=== PATIENT | female | born 1975 | race Caucasian/White ===

== ENCOUNTER 2016-08-27 09:01 | Day surgery (SDC) | payer BC ==
[~2016-08-27 09:01] MED LIST: Buffered Lidocaine 1% SYR 3ML* 3 ML/SYR SYRINGE INTRADERM ONE; Dexamethasone IV* 4 MG/ML 1 ML (4 MG) IV SLOW PU ONE; Famotidine IV* 10 MG/ML 2 ML (20 mg) IV ONE
[2016-08-27] MEDS ORDERED: Famotidine IV* 10 MG/ML 2 ML (20 mg) ONE (09:02)
[2016-08-27] MEDS ORDERED: Dexamethasone IV* 4 MG/ML 1 ML (4 MG) ONE (09:02)
[2016-08-27] MEDS ORDERED: Metoprolol Succinate XL TAB* 25 MG PO ONE (10:00)
[2016-08-27] MEDS ORDERED: HYDROmorphone INJ* 1 MG/ML CARPUJECT SYRINGE ONE ×4 (10:30→14:27)
[2016-08-27] MEDS ORDERED: fentaNYL* 50 MCG/ML 5 ML VIAL (250 MCG VIAL) ONE (10:31)
[2016-08-27] MEDS ORDERED: Midazolam* 1 MG/ML 5 ML VIAL (5 MG) ONE (10:31)
[2016-08-27] MEDS ORDERED: Lidocain 1% EPI 1:100,000 * 30 ML MDV ONE (10:53)
[2016-08-27] MEDS ORDERED: Succinylcholine* 20 MG/ML 10 ML VIAL ONE (12:37)
[2016-08-27] MEDS ORDERED: Lidocaine 2% PF * 5 ML VIAL ONE (12:37)
[2016-08-27] MEDS ORDERED: Propofol* 10 MG/ML 20 ML BTL IV PUSH ONE (12:37)
[2016-08-27] MEDS ORDERED: Ondansetron INJ* 2 MG/ML VIAL ONE (12:37)
[2016-08-27] MEDS ORDERED: fentaNYL* 50 MCG/ML 2 ML VIAL (100 MCG VIAL) ONE ×3 (12:39→14:27)
[2016-08-27] MEDS ORDERED: fentaNYL* 50 MCG/ML 2 ML VIAL (100 MCG VIAL) IV PRN (14:52)
[2016-08-27] MEDS ORDERED: PROCHLORPERAZINE INJ 5 MG/ML 2 ML VIAL IV PRN (14:52)
[2016-08-27] MEDS ORDERED: Scopolamine 1.5 mg* PATCH TRANSDERM PRN (14:52)
[2016-08-27] MEDS ORDERED: HYDROmorphone INJ* 1 MG/ML CARPUJECT SYRINGE IV PRN (14:52)
[2016-08-27] MEDS ORDERED: DiMENhydriNATE IV* 50 MG/ML VIAL IV PUSH PRN (14:52)
[2016-08-27] MEDS ORDERED: Ondansetron INJ* 2 MG/ML VIAL IV PRN (14:52)
[2016-08-27] MEDS ORDERED: Scopolamine 1.5 mg* PATCH ONE (15:38)
[2016-08-27] MEDS ORDERED: DiMENhydriNATE IV* 50 MG/ML VIAL ONE (15:38)
[2016-08-27] MEDS ORDERED: Acetaminophen ADULT LIQ* 650 MG/20.3 ML UDC ONE (16:02)
[2016-08-27 16:09] VITALS: BP 138/79
--- NOTE | 2016-08-28 04:29 | OP ---
OPERATIVE REPORT: DATE OF OPERATION: 08/27/16 DATE OF : 71 SURGEON: Tuan Mooney MD FORM BUILDER HELPER: Jarvis Hylton MD ANESTHESIA: General. PRE-OP DIAGNOSIS: Neoplasm of uncertain behavior, left lobe of thyroid. POST-OP DIAGNOSIS: Neoplasm of uncertain behavior, left lobe of thyroid. OPERATIVE PROCEDURE: Left thyroid lobectomy. ESTIMATED BLOOD LOSS: Less than 10 cc. SPECIMEN: Left thyroid lobe to pathology for frozen section. FINDINGS: There was a discrete nodule in the superior pole of the left lobe of the thyroid. Fine needle aspiration had been suspicious for papillary carcinoma , but touch prep and subsequent frozen section done intraoperatively failed to reveal compelling evidence for malignancy. DESCRIPTION OF PROCEDURE: This is a 40-year-old woman who had a stroke a few months ago and during a workup was noted to have a thyroid nodule. Subsequent fine needle aspiration was suspicious for papillary carcinoma. Left thyroid lobectomy was recommended with intraoperative frozen section. On 08/27/16, the patient was brought to the operating room. General anesthesia was induced and a NIM's endotracheal tube was placed. The placement was confirmed visually. The NIM's monitor was then connected and found to be in good working order. The intended incision line was marked and infiltrated with 7 cc of 1% lidocaine with epinephrine. The patient was then prepped with Betadine and draped sterilely. A time-out was performed. A 15 blade was used to make an incision through the skin and dermis. Deeper subcutaneous fat was divided down to the level of the platysma using a Bovie cautery. The platysma was then divided with a Bovie and subplatysmal flaps were raised superiorly and inferiorly. Strap muscles were then divided vertically along the median raphe. The strap muscles were reflected off of the left lobe. The superior pole region was examined first. The superior vascular pedicle was identified, ligated with Hemoclips, and then divided with the LigaSure device. Attention was then turned inferiorly. The tracheoesophageal groove was explored. The recurrent laryngeal nerve was identified. At this point, the anterior wall of the trachea was skeletonized just above and below the isthmus. The isthmus was then divided with the LigaSure device. The lateral dissection of the thyroid was then undertaken from inferior to superior using a tight capsular dissection with branches of the inferior vascular pedicle being either ligated with Hemoclips or the bipolar cautery. The recurrent laryngeal nerve was used as a landmark in dissection. It was followed to its insertion under the cricothyroid muscle. It was protected and preserved without trauma. Two candidate parathyroids were seen and preserved. The gland was then reflected off of Suarez's ligament. The gland was then taken to pathology. The wound was covered with saline-moistened gauze. Intraoperative evaluation was performed with both a touch prep and a frozen section. No convincing evidence of malignancy was seen. 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 Decision was made to stop the procedure here in favor of evaluation of the permanent sections. After frozen section evaluation, the wound was then inspected. It was copiously irrigated. Multiple Valsalva's were performed. There was no evidence of active bleeding. A small piece of Surgicel was then placed in the region of Suarez's ligament and the wound was closed in layers. The strap muscles were closed with 3-0 Vicryl. The platysma was also closed with 3-0 Vicryl. A 4-0 nylon was then used to close the skin in a running subcuticular fashion. Steri-Strips were then placed along with Mastisol. The patient was then extubated without difficulty and delivered to the PACU in a stable condition. The left recurrent laryngeal nerve was intact and stimulated at the end of surgery. [id number]/[facility] #: [id number] [facility] PS[facility]IATR[facility] CENTERJocelyn
[2016-08-30] MEDS ORDERED: Scopolamine PATCH Remove* 1 NOTE MISC PATCH OFF ONE (14:53)
== END 2016-08-27 16:50 | disposition home or self-care (01) ==
LOC: OR 09:01
PROVIDERS: ATTEND Otolaryngology
DX: D34 Benign neoplasm of thyroid gland (principal); I10 Essential (primary) hypertension; F17.210 Nicotine dependence, cigarettes, uncomplicated; N03.9 Chronic nephritic syndrome with unspecified morphologic changes; R00.2 Palpitations
CPT/HCPCS: 88307; 88331; A9270-GY; J0330; J1100; J1170; J1240; J2250; J2405; J2704; J3010

== ENCOUNTER 2016-11-01 21:54 | Emergency (ER) | payer BC ==
[2016-11-02 00:32] LABS: Hematocrit 43 % (35-47); Hemoglobin 14.4 g/dl (12.0-16.0); Mean Corpuscular HGB Conc 33 g/dl (31-36); Mean Corpuscular Hemoglobin 30 pg (27-31); Mean Corpuscular Volume 90 fL (80-97); Mean Platelet Volume 8 um3 (7.4-10.4); Red Cell Distribution Width 13 % (10.5-15); White Blood Count 12.3 10^3/ul (3.5-10.8)
[2016-11-02 00:49] LABS: Albumin 3.9 g/dL (3.2-5.2); BUN/Creatinine Ratio 14.4 (8-20); Calcium 8.9 mg/dL (8.6-10.3); EGFR African American 87.9 (>60); EGFR Non-African American 68.3 (>60); Globulin 2.7 g/dL (2-4); Magnesium 1.7 mg/dL (1.9-2.7); Potassium 3.4 mmol/L (3.5-5.0); Total Bilirubin 0.3 mg/dL (0.2-1.0); Total Protein 6.6 g/dL (6.4-8.9)
--- NOTE | 2016-11-02 01:06 | ED ---
Steven Sena Salem, scribed for Jose Juan Jones MD on 11/01/16 at 2241 . HPI Chest Pain - HPI Summary HPI Summary: Patient is a 41 y/o female who presents to the ED with dizziness since 2129 tonight. She reports she experienced discomfort in her chest that radiated down her arm. Pt states that sx went away and returned after a few minutes so she came in. However, sx are currently resolved. She describes the dizziness as blurry vision. Pt states that she had similar but worse sx in April 2017 when she had a TIA. She states that at that time she also had facial droop and left-sided weakness, which she currently denies. Pt also reports she has been feeling off the last few days. She states that her PCP recently changed her medication and added a new one as she was Vitamin D deficient. - History of Current Complaint Chief Complaint: EDChestPainROMI Time Seen by Provider: 11/01/16 22:37 Hx Obtained From: Patient Onset/Duration: Started Hours Ago, Atraumatic, Resolved Timing: Intermittent Initial Severity: Moderate Current Severity: Moderate Pain Intensity: 3 Pain Scale Used: 0-10 Numeric Chest Pain Location: Diffuse Chest Pain Radiates: Yes Chest Pain Radiates To:: Arm Character: Other: - Discomfort. Aggravating Factor(s): Nothing Alleviating Factor(s): Nothing Associated Signs and Symptoms: Positive: Chest Pain, Dizziness - Additional Pertinent History Primary Care Physician: ORLIN - Allergy/Home Medications Allergies/Adverse Reactions: Allergies Allergy/AdvReac Type Severity Reaction Status Date / Time Hydrocodone [From Vicodin] Allergy Vomiting Verified 08/27/16 09:12 NSAIDs Allergy KIDNEY Verified 08/27/16 09:12 DAMAGE Oxycodone [From Percocet] AdvReac Severe Vomiting Verified 08/27/16 09:12 PMH/Surg Hx/FS Hx/Imm Hx Endocrine/Hematology History: Reports: Hx Thyroid Disease - having surgery for cancer Denies: Hx Anticoagulant Therapy, Hx Diabetes, Hx Anemia Cardiovascular History: Reports: Hx Hypertension - DUE TO KIDNEY DISEASE; pt denies, Other Cardiovascular Problems/Disorders - LISINOPRIL FOR KIDNEYS , METOPROLOL FOR TACHYCARDIA Denies: Hx Pacemaker/ICD Respiratory History: Denies: Hx Asthma GI History: Reports: Hx Gastroesophageal Reflux Disease Denies: Hx Jaundice History: Reports: Hx Renal Disease - sclerosis of kidney, Other Problems/ Disorders - Kidney disease - sclerosis of kidneys, glomerular nephritis Musculoskeletal History: Reports: Hx Back Problems - Multiple surgeries Sensory History: Denies: Hx Contacts or Glasses, Hx Hearing Aid Opthamlomology History: Denies: Hx Contacts or Glasses Psychiatric History: Denies: Hx Panic Disorder - Cancer History Hx Chemotherapy: No - Surgical History Surgery Procedure, Year, and Place: lumbar L4/L5 discectomy x2, uterine ablation , tubal ligation, appendix, tonsillectomy, jaw fx repair, gallbladder removal, partial HYSTERECTOMY Hx Anesthesia Reactions: No - Immunization History Date of Tetanus Vaccine: UNK Date of Influenza Vaccine: 03/04/16 Infectious Disease History: Denies: Traveled Outside the [place] in Last 30 Days - Family History Known Family History: Positive: Cardiac Disease - CAD, CABG, Diabetes, Blood Disorder - DVT - Social History Alcohol Use: Occasionally Hx Substance Use: No Substance Use Type: Reports: None Hx Tobacco Use: Yes Smoking Status (MU): Former Smoker Type: Cigarettes Amount Used/How Often: 07/2016 Length of Time of Smoking/Using Tobacco: 10 Have You Smoked in the Last Year: Yes Review of Systems Negative: Fever Positive: Chest Pain - that radiates to arm. Neurological: Other - Dizziness. All Other Systems Reviewed And Are Negative: Yes Physical Exam Triage Information Reviewed: Yes Vital Signs On Initial Exam: Initial Vitals Temp Pulse Resp BP Pulse Ox 97 F 79 18 142/98 100 11/01/16 22:07 11/01/16 22:07 11/01/16 22:07 11/01/16 22:07 11/01/16 22:07 Vital Signs Reviewed: Yes Appearance: Positive: Well-Appearing, No Pain Distress Skin: Positive: Warm Eyes: Positive: MAHIN ENT: Positive: Hearing grossly normal Neck: Positive: Supple Respiratory/Lung Sounds: Positive: Clear to Auscultation, Breath Sounds Present Cardiovascular: Positive: RRR Abdomen Description: Positive: Nontender, Soft Bowel Sounds: Positive: Present Musculoskeletal: Positive: Strength/ROM Intact Neurological: Positive: Alert, Oriented to Person Place, Time Psychiatric: Positive: Affect/Mood Appropriate Diagnostics - Vital Signs Vital Signs Temp Pulse Resp BP Pulse Ox 11/01/16 22:07 97 F 79 18 142/98 100 - Laboratory Lab Results: Lab Results 11/02/16 11/02/16 11/02/16 Range/Units 00:15 00:15 00:15 WBC 12.3 H (3.5-10.8) 10^3/ul RBC 4.80 (4.0-5.4) 10^6/ul Hgb 14.4 (12.0-16.0) g/dl Hct 43 (35-47) % MCV 90 (80-97) fL MCH 30 (27-31) pg MCHC 33 (31-36) g/dl RDW 13 (10.5-15) % Plt Count 269 (150-450) 10^3/ul MPV 8 (7.4-10.4) um3 Neut % (Auto) 66.7 (38-83) % Lymph % (Auto) 25.4 (25-47) % Bent % (Auto) 4.2 (1-9) % Eos % (Auto) 2.4 (0-6) % Baso % (Auto) 1.3 (0-2) % Absolute Neuts (auto) 8.2 H (1.5-7.7) 10^3/ul Absolute Lymphs (auto) 3.1 (1.0-4.8) 10^3/ul Absolute Monos (auto) 0.5 (0-0.8) 10^3/ul Absolute Eos (auto) 0.3 (0-0.6) 10^3/ul Absolute Basos (auto) 0.2 (0-0.2) 10^3/ul Absolute Nucleated RBC 0.01 10^3/ul Nucleated RBC % 0.1 INR (Anticoag Therapy) 0.95 (0.89-1.11) Sodium 136 (133-145) mmol/L Potassium 3.4 L (3.5-5.0) mmol/L Chloride 101 (101-111) mmol/L Carbon Dioxide 28 (22-32) mmol/L Anion Gap 7 (2-11) mmol/L BUN 13 (6-24) mg/dL Creatinine 0.90 (0.51-0.95) mg/dL Est GFR ( Amer) 87.9 (>60) Est GFR (Non-Af Amer) 68.3 (>60) BUN/Creatinine Ratio 14.4 (8-20) Glucose 109 H (70-100) mg/dL Lactic Acid (0.5-2.0) mmol/L Calcium 8.9 (8.6-10.3) mg/dL Magnesium 1.7 L (1.9-2.7) mg/dL Total Bilirubin 0.30 (0.2-1.0) mg/dL AST 12 L (13-39) U/L ALT 17 (7-52) U/L Alkaline Phosphatase 78 (34-104) U/L Troponin I 0.00 (<0.04) ng/mL Total Protein 6.6 (6.4-8.9) g/dL Albumin 3.9 (3.2-5.2) g/dL Globulin 2.7 (2-4) g/dL Albumin/Globulin Ratio 1.4 (1-3) / Range/Units 00:15 WBC (3.5-10.8) 10^3/ul RBC (4.0-5.4) 10^6/ul Hgb (12.0-16.0) g/dl Hct (35-47) % MCV (80-97) fL MCH (27-31) pg MCHC (31-36) g/dl RDW (10.5-15) % Plt Count (150-450) 10^3/ul MPV (7.4-10.4) um3 Neut % (Auto) (38-83) % Lymph % (Auto) (25-47) % Bent % (Auto) (1-9) % Eos % (Auto) (0-6) % Baso % (Auto) (0-2) % Absolute Neuts (auto) (1.5-7.7) 10^3/ul Absolute Lymphs (auto) (1.0-4.8) 10^3/ul Absolute Monos (auto) (0-0.8) 10^3/ul Absolute Eos (auto) (0-0.6) 10^3/ul Absolute Basos (auto) (0-0.2) 10^3/ul Absolute Nucleated RBC 10^3/ul Nucleated RBC % INR (Anticoag Therapy) (0.89-1.11) Sodium (133-145) mmol/L Potassium (3.5-5.0) mmol/L Chloride (101-111) mmol/L Carbon Dioxide (22-32) mmol/L Anion Gap (2-11) mmol/L BUN (6-24) mg/dL Creatinine (0.51-0.95) mg/dL Est GFR ( Amer) (>60) Est GFR (Non-Af Amer) (>60) BUN/Creatinine Ratio (8-20) Glucose (70-100) mg/dL Lactic Acid 1.0 (0.5-2.0) mmol/L Calcium (8.6-10.3) mg/dL Magnesium (1.9-2.7) mg/dL Total Bilirubin (0.2-1.0) mg/dL AST (13-39) U/L ALT (7-52) U/L Alkaline Phosphatase (34-104) U/L Troponin I (<0.04) ng/mL Total Protein (6.4-8.9) g/dL Albumin (3.2-5.2) g/dL Globulin (2-4) g/dL Albumin/Globulin Ratio (1-3) Result Diagrams: 11/02/16 00:15 11/02/16 00:15 Lab Statement: Any lab studies that have been ordered have been reviewed, and results considered in the medical decision making process. - Radiology CXR Radiology Interpretation Completed By: ED Physician - Negative. - EKG 9854 EKG Interpretation: NSR @ 76 bpm. Re-Evaluation - Re-Evaluation First Eval Change: Improved Chest Pain Course/Dx - Diagnoses Provider Diagnoses: Dizziness, Chest pain Discharge - Discharge Plan Condition: Stable Disposition: HOME Patient Education Materials: Chest Pain (ED), Dizziness (ED) Referrals: Bruno Cabrera MD [Primary Care Provider] - Additional Instructions: Follow up with PCP. The documentation as recorded by the Steven agosto Salem accurately reflects the service I personally performed and the decisions made by , Jose Juan Jones MD.
[2016-11-02 01:16] VITALS: BP 122/76
--- NOTE | 2016-11-02 07:29 | RAD ---
INDICATION: Chest pain. COMPARISON: Comparison is made with a prior study from June 19, 2016. TECHNIQUE: Dual-energy PA and lateral views of the chest were obtained. FINDINGS: The heart is within normal limits in size. Mediastinal and hilar contours appear within normal limits. The lungs are clear. No pleural effusion is present. IMPRESSION: NO EVIDENCE FOR ACTIVE CARDIOPULMONARY DISEASE.
== END 2016-11-02 01:16 | disposition home or self-care (01) ==
LOC: ED 21:54
DX: R07.9 Chest pain, unspecified (principal); R42 Dizziness and giddiness; Z87.891 Personal history of nicotine dependence
CPT/HCPCS: 36415; 71020; 80053; 83605; 83735; 84484; 85025; 85610; 93005; 99282

== ENCOUNTER 2017-05-03 05:50 | Inpatient (IN) | payer BC ==
[2017-05-03 06:30] LABS: Hematocrit 42 % (35-47); Hemoglobin 13.9 g/dl (12.0-16.0); Mean Corpuscular HGB Conc 33 g/dl (31-36); Mean Corpuscular Hemoglobin 30 pg (27-31); Mean Corpuscular Volume 92 fL (80-97); Mean Platelet Volume 8 um3 (7.4-10.4); Red Cell Distribution Width 13 % (10.5-15); White Blood Count 8.3 10^3/ul (3.5-10.8)
[2017-05-03] MEDS ORDERED: NS 0.9% 1000 ML* 1,000 ML IV SCH (06:30)
[2017-05-03] MEDS ORDERED: Nitroglycerin TAB 0.4 MG* 0.4 MG TAB SL ONE (06:40)
[2017-05-03] MEDS ORDERED: Morphine INJ* 4 MG/ML 1 ML CARPUJECT IV ONE (06:43)
[2017-05-03] MEDS ORDERED: Ondansetron INJ* 2 MG/ML VIAL IV ONE (06:43)
[2017-05-03 06:47] LABS: ALT 29 U/L (7-52); AST 19 U/L (13-39); Alkaline Phosphatase 74 U/L (34-104); Anion Gap 9 mmol/L (2-11); BUN/Creatinine Ratio 15.1 (8-20); Blood Urea Nitrogen 11 mg/dL (6-24); C Reactive Protein 11.13 mg/L (< 5.00); CO2 Carbon Dioxide 24 mmol/L (22-32); Calcium 9.1 mg/dL (8.6-10.3); Chloride 104 mmol/L (101-111); Creatine Kinase 36 U/L (10-223); EGFR African American 111.9 (>60); Globulin 2.6 g/dL (2-4); Glucose 104 mg/dL (70-100); Lipase 23 U/L (11.0-82.0); Magnesium 1.7 mg/dL (1.9-2.7); Potassium 3.7 mmol/L (3.5-5.0); Sodium 137 mmol/L (133-145); Total Protein 6.6 g/dL (6.4-8.9)
[2017-05-03] MEDS ORDERED: Magnesium Sulfate 2 GM IV* 2 GM/50 ML BAG IVPB ONE (07:05)
[2017-05-03 07:24] LABS: TSH (Thyroid Stimulating Horm) 4.51 mcIU/mL (0.34-5.60)
--- NOTE | 2017-05-03 07:24 | ED ---
Bhavesh eSna Nikita, scribed for Anival Sandy MD on 05/03/17 at 0639 . HPI Chest Pain - HPI Summary HPI Summary: This patient is a 41 year old F BIBA to ED with a chief complaint of L-sided CP since 429. The pain woke the pt out of her sleep. The CC is described as burning and radiating down the L arm. The patient rates the pain 4-5/10 in severity at its worst. Symptoms aggravated by nothing. Symptoms alleviated by nothing (EMS gave NTG with no relief). Patient reports SOB, palpitations, diaphoresis, near-syncope (yesterday while shopping), and dizziness (like the floor was going to meet my face). Patient denies nausea. Pt reports she felt off all day yesterday. - History of Current Complaint Chief Complaint: EDChestPainROMI Time Seen by Provider: 05/03/17 06:25 Hx Obtained From: Patient Hx Last Menstrual Period: 07/28/12 Onset/Duration: Started Hours Ago, Still Present Timing: Constant, Lasting Hours Initial Severity: Moderate Current Severity: Moderate Pain Intensity: 4 Pain Scale Used: 0-10 Numeric Chest Pain Location: Discrete at: - L-sided CP Chest Pain Radiates: Yes Chest Pain Radiates To:: Arm - L arm Character: Burning Aggravating Factor(s): Nothing Alleviating Factor(s): Nothing Associated Signs and Symptoms: Positive: Other: - Patient reports SOB, palpitations, diaphoresis, near-syncope (yesterday while shopping), and dizziness (like the floor was going to meet my face). Patient denies nausea. - Additional Pertinent History Primary Care Physician: [id number] - Allergy/Home Medications Allergies/Adverse Reactions: Allergies Allergy/AdvReac Type Severity Reaction Status Date / Time Hydrocodone [From Vicodin] Allergy Vomiting Verified 08/27/16 09:12 NSAIDs Allergy KIDNEY Verified 08/27/16 09:12 DAMAGE Oxycodone [From Percocet] AdvReac Severe Vomiting Verified 08/27/16 09:12 PMH/Surg Hx/FS Hx/Imm Hx Endocrine/Hematology History: Reports: Hx Thyroid Disease - having surgery for cancer Denies: Hx Anticoagulant Therapy, Hx Diabetes, Hx Anemia Cardiovascular History: Reports: Hx Hypertension - DUE TO KIDNEY DISEASE; pt denies, Other Cardiovascular Problems/Disorders - LISINOPRIL FOR KIDNEYS , METOPROLOL FOR TACHYCARDIA Denies: Hx Pacemaker/ICD Respiratory History: Denies: Hx Asthma GI History: Reports: Hx Gastroesophageal Reflux Disease Denies: Hx Jaundice History: Reports: Hx Renal Disease - sclerosis of kidney, Other Problems/ Disorders - Kidney disease - sclerosis of kidneys, glomerular nephritis Musculoskeletal History: Reports: Hx Back Problems - Multiple surgeries Sensory History: Denies: Hx Contacts or Glasses, Hx Hearing Aid Opthamlomology History: Denies: Hx Contacts or Glasses Psychiatric History: Denies: Hx Panic Disorder - Cancer History Hx Chemotherapy: No - Surgical History Surgery Procedure, Year, and Place: lumbar L4/L5 discectomy x2, uterine ablation , tubal ligation, appendix, tonsillectomy, jaw fx repair, gallbladder removal, partial HYSTERECTOMY Hx Anesthesia Reactions: No - Immunization History Date of Tetanus Vaccine: UNK Date of Influenza Vaccine: 03/04/16 Infectious Disease History: No Infectious Disease History: Denies: Traveled Outside the [place] in Last 30 Days - Family History Known Family History: Positive: Cardiac Disease - CAD, CABG, Diabetes, Blood Disorder - DVT - Social History Alcohol Use: Occasionally Hx Substance Use: No Substance Use Type: Reports: None Hx Tobacco Use: Yes Smoking Status (MU): Former Smoker Type: Cigarettes Amount Used/How Often: 07/2016 Length of Time of Smoking/Using Tobacco: 10 Have You Smoked in the Last Year: Yes Review of Systems Positive: Skin Diaphoresis Positive: Palpitations, Chest Pain - L-sided Positive: Shortness Of Breath Negative: Nausea Neurological: Other - near-syncope, dizziness All Other Systems Reviewed And Are Negative: Yes Physical Exam Triage Information Reviewed: Yes Vital Signs On Initial Exam: Initial Vitals Temp Pulse Resp BP Pulse Ox 98.1 F 94 16 142/85 96 05/03/17 05:56 05/03/17 05:56 05/03/17 05:56 05/03/17 05:56 05/03/17 05:56 Vital Signs Reviewed: Yes Appearance: Positive: Well-Appearing, No Pain Distress Skin: Positive: Warm, Skin Color Reflects Adequate Perfusion, Dry Head/Face: Positive: Normal Head/Face Inspection Eyes: Positive: EOMI, MAHIN ENT: Positive: Normal ENT inspection Neck: Positive: Supple, Nontender Respiratory/Lung Sounds: Positive: Clear to Auscultation, Breath Sounds Present Cardiovascular: Positive: RRR Abdomen Description: Positive: Nontender, Soft Bowel Sounds: Positive: Present Musculoskeletal: Positive: Normal, Strength/ROM Intact Neurological: Positive: Normal, Sensory/Motor Intact, Alert, Oriented to Person Place, Time Psychiatric: Positive: Anxious Diagnostics - Vital Signs Vital Signs Temp Pulse Resp BP Pulse Ox 05/03/17 06:02 102 96 05/03/17 05:56 98.1 F 94 16 142/85 96 - Laboratory Lab Results: Lab Results 05/03/17 Range/Units 06:10 WBC 8.3 (3.5-10.8) 10^3/ul RBC 4.60 (4.0-5.4) 10^6/ul Hgb 13.9 (12.0-16.0) g/dl Hct 42 (35-47) % MCV 92 (80-97) fL MCH 30 (27-31) pg MCHC 33 (31-36) g/dl RDW 13 (10.5-15) % Plt Count 251 (150-450) 10^3/ul MPV 8 (7.4-10.4) um3 Neut % (Auto) 68.0 (38-83) % Lymph % (Auto) 24.1 L (25-47) % [place] % (Auto) 4.3 (1-9) % Eos % (Auto) 3.0 (0-6) % Baso % (Auto) 0.6 (0-2) % Absolute Neuts (auto) 5.7 (1.5-7.7) 10^3/ul Absolute Lymphs (auto) 2.0 (1.0-4.8) 10^3/ul Absolute Monos (auto) 0.4 (0-0.8) 10^3/ul Absolute Eos (auto) 0.3 (0-0.6) 10^3/ul Absolute Basos (auto) 0 (0-0.2) 10^3/ul Absolute Nucleated RBC 0 10^3/ul Nucleated RBC % 0 Result Diagrams: 05/03/17 06:10 05/03/17 06:10 Lab Statement: Any lab studies that have been ordered have been reviewed, and results considered in the medical decision making process. - Radiology CXR Radiology Interpretation Completed By: ED Physician - NAD - EKG 0620 Cardiac Rate: Tachycardia EKG Rhythm: Sinus Tachycardia - [address] Segment: Normal Ectopy: None Chest Pain Course/Dx - Course Assessment/Plan: This patient is a 41 year old F BIBA to ED with a chief complaint of L-sided CP since 429. The pain woke the pt out of her sleep. The CC is described as burning and radiating down the L arm. The patient rates the pain 4-5/10 in severity at its worst. Symptoms aggravated by nothing. Symptoms alleviated by nothing (EMS gave NTG with no relief). Patient reports SOB, palpitations, diaphoresis, near-syncope (yesterday while shopping), and dizziness (like the floor was going to meet my face). Patient denies nausea. Pt reports she felt off all day yesterday. BP noted and advised to follow up with PCP. Medications reviewed. Allergies noted. EKG reveals sinus tachycardia at 103 bpm, nml ST, and no ectopy. In the ED course, pt was given fluids and NTG. ADMIT HOSPITALIST - Diagnoses Provider Diagnoses: Chest pain Discharge - Discharge Plan Condition: Stable Disposition: ADMITTED TO [facility] Referrals: Bruno Cabrera MD [Primary Care Provider] - The documentation as recorded by the Bhavesh agosto Nikita accurately reflects the service I personally performed and the decisions made by me, Anival Sandy MD.
--- NOTE | 2017-05-03 07:50 | RAD ---
INDICATION: Chest pain. COMPARISON: Comparison is made with a prior chest x-ray study November 01, 2016. TECHNIQUE: A portable view of the chest was obtained. FINDINGS: Cardiac and mediastinal contours appear to be within normal limits. The lungs are clear. No pleural effusion is seen. IMPRESSION: NO EVIDENCE FOR ACUTE DISEASE.
[2017-05-03] MEDS ORDERED: Magnesium Sulfate IV* 3 GM in NS 0.9% 100 ML* 100 ML IVPB ONE (08:16)
[2017-05-03 08:38] LABS: Cholesterol 182 mg/dL; HDL Cholesterol 45.4 mg/dL; LDL Cholesterol 101 mg/dL; Triglycerides 180 mg/dL
[2017-05-03] MEDS ORDERED: NS 0.9% 100 ML* 100 ML ONE (09:33)
[2017-05-03] MEDS: Acetaminophen TAB* 325 MG PO PRN (09:37)
[2017-05-03] MEDS: Cholecalciferol TAB* 1000 UNITS PO SCH (09:37)
[2017-05-03] MEDS: Lisinopril TAB* 10 MG PO SCH (09:37)
[2017-05-03] MEDS: Magnesium Oxide TAB* 400 MG PO SCH (09:38)
[2017-05-03] MEDS: Omeprazole CAP* 20 MG PO SCH (09:38)
[2017-05-03] MEDS ORDERED: Ondansetron INJ* 2 MG/ML VIAL IV PRN (11:04)
--- NOTE | 2017-05-03 12:09 | HP ---
CC: Dr. Cabrera; Dr. Zayas * HISTORY AND PHYSICAL: DATE OF ADMISSION: 05/03/17 PRIMARY CARE PROVIDER: Dr. Cabrera. REMOTE RECRUITER: Dr. Zayas. ATTENDING PHYSICIAN: Dr. Sonia Joseph * (report dictated by Yudy Nova NP). CHIEF COMPLAINT: Chest pain with palpitations. HISTORY OF PRESENT ILLNESS: Ms. Connor is a 41-year-old female with past medical history significant for atypical chest pain, palpitations, hypertension , TIA, who presented to the emergency room today with an episode of high heart rate and chest pain. The patient states she woke up in the middle of the night with sweating profusely. She took her heart rate, which she states was between 130 and 136. She felt that her heart was pounding. The patient states the pain was a burning sensation with radiating down her arm, her chest also hurt, pain was not reproducible on palpation. The patient states that this pain was different than the episode she has had in the past. It has been almost a year since her previous a prior episode. Yesterday, she states she "was not feeling right." She was dizzy when she was in the parking lot at [employer] and almost came to the emergency room then. She summoned EMS to bring her to the emergency room with this morning's episode for further evaluation. In the emergency room, she received nitro and at that point the pain was started to ease up. In the past with these episodes, the pain has eased up in a much more timely fashion. The patient has a history of having atypical chest pain and reestablished herself with Dr. Zayas at some point last year because of this episode. Historically, she has had negative evaluation with some improvement in the episodes with initiation of PPI. It was felt that these episodes were less likely to be cardiovascular and potentially radiculopathy, cervical disk or GI related. Her blood pressure had been quite labile, hence the plan per last cardiology note in December was to start her on Cardizem with hope for improvement of the palpitations, cardiac relaxation, and blood pressure control. In the emergency room, the patient had a negative troponin. She had an EKG that showed sinus tach with rate of 103, no abnormalities. Hospitalists were asked to evaluate this patient for admission. The patient was placed on observation for atypical chest pain. PAST MEDICAL HISTORY: Atypical chest pain, palpitations, hypertension, focal segmental glomerulosclerosis, thyroid nodule, TIA, obstructive sleep apnea, tobacco abuse. PAST SURGICAL HISTORY: Cholecystectomy, appendectomy, tonsillectomy, total artificial hysterectomy. HOME MEDICATIONS: Include: 1. Aspirin 325 mg oral daily. 2. Cardizem 120 mg oral daily. 3. Lisinopril 20 mg oral daily. 4. Toprol 12.5 mg oral daily. 5. Mag oxide 400 mg oral daily. 6. Vitamin D 5000 units oral daily. 7. Torsemide 20 mg oral daily as needed. 8. Protonix 40 mg oral daily. ALLERGIES: NSAIDS, NARCOTICS. FAMILY HISTORY: Father had a history of an NM, when he was 56, he also had diabetes. Mother is alive and well. SOCIAL HISTORY: The patient is a former smoker, she quit almost a year ago. She smoked a pack daily for 20 years. Drinks alcohol occasionally. Denies any drug use. Consumes 3 cups of coffee a day. Sporadic exercise. REVIEW OF SYSTEMS: I performed a 14-point review of systems. All the pertinent positives and negatives are mentioned in the history of present illness. The remaining review of systems are negative. PHYSICAL EXAMINATION GENERAL APPEARANCE: The patient is alert, pleasant, appeared to be in no apparent distress. VITAL SIGNS: Temperature 98.1, heart rate 101, respiratory rate 16, oxygen saturation 97% on room air, blood pressure 136/96. HEENT: Normocephalic/atraumatic. Pupils are equal and reactive to light. Extraocular movements are intact. NECK: Supple. There is no lymphadenopathy noted. RESPIRATORY: There was no accessory muscle use. Lungs were clear to auscultation. Pain was non-reproducible on palpation. CARDIAC: S1, S2 were crisp. There were no murmurs, rubs, or gallops heard. ABDOMEN: Soft, nontender, nondistended. There are bowel sounds x4. EXTREMITIES: There was no lower extremity edema. DP and PT pulses were 2+ and asymmetric. MUSCULOSKELETAL: There is no clubbing or cyanosis noted. The patient exhibited equal strength in all extremities. NEUROLOGIC: Cranial nerves II through XII are intact. The patient moves all extremities. Lower extremities are intact to light touch. PSYCH: The patient is alert and oriented x3. SKIN: There were no rashes or abnormalities seen. DIAGNOSTIC STUDIES/LABORATORY DATA: Sodium 137, potassium 3.7, chloride 104, CO2 24, BUN 11, creatinine 0.73, glucose 104. Lactic acid 1.5, calcium 9.1, magnesium 1.7. Liver function tests within normal limits. CRP 11.1. BNP 10. TSH 4.5. White blood cell count 8.3, hemoglobin 13.9, hematocrit 42, platelet count 251. INR 0.81, PTT 27.9. Chest x-ray, no evidence for acute disease. EKG is sinus tachycardia with rate of 103, no abnormalities. IMPRESSION: This is a 41-year-old female with past medical history significant for palpitations, atypical chest pain, who presents to the emergency room with an episode of palpitations and chest pain. The patient will be placed on observation for repeat troponin and a stress test later today. ASSESSMENT AND PLAN: 1. Chest pain. The patient will be placed in the CDU and will have an additional troponin at 11 a.m. She will also have a fasting lipid profile. Magnesium is low and this will be repleted as well as potassium. If the troponin is negative, the patient will have a nuclear cardiac stress test. Cardizem and Toprol will be held in anticipation of the stress test. Lisinopril will be given this morning as well as Protonix. The patient has already received aspirin. 2. Hypertension. Blood pressure is slightly elevated and lisinopril will be given this morning. Other agents will be held in anticipation of the stress test. 3. Obstructive sleep apnea. Home CPAP if the patient will stay overnight, will continue. 4. DVT prophylaxis. The patient is at moderate risk. She will have subcu heparin. 5. Diet. NPO in anticipation of the stress test. Likely the patient can be discharged home following the stress test. TIME SPENT: Time for this admission was 60 minutes, and 35 minutes was spent with the patient discussing medications, past medical history, and the events leading up to her arrival in the emergency room. Reviewed by YUDY NOVA NP 05/04/2017 1130 [id number]/[facility] #: [id number] ANDRES
[2017-05-03] MEDS ORDERED: PROCHLORPERAZINE INJ 5 MG/ML 2 ML VIAL IV PRN (13:13)
[2017-05-03] MEDS: Heparin VIAL(*) 5000 UNITS/ML VIAL (FIVE THOUSAND) SUBCUT SCH ×2 (13:36→21:50)
[2017-05-03] MEDS: Diltiazem CD CAP* 120 MG PO SCH (20:08)
[2017-05-04 00:07] LABS: Urine Bacteria Absent (Absent); Urine Bilirubin Negative (Negative); Urine Glucose Negative (Negative); Urine Nitrite Negative (Negative)
[2017-05-04] MEDS: Heparin VIAL(*) 5000 UNITS/ML VIAL (FIVE THOUSAND) SUBCUT SCH ×3 (06:20→22:32)
[2017-05-04 06:57] LABS: BUN/Creatinine Ratio 17.1 (8-20); Calcium 8.5 mg/dL (8.6-10.3); EGFR African American 106.8 (>60); EGFR Non-African American 83.1 (>60); Potassium 4.2 mmol/L (3.5-5.0)
[2017-05-04] MEDS: Omeprazole CAP* 20 MG PO SCH (08:51)
[2017-05-04] MEDS: Lisinopril TAB* 10 MG PO SCH (08:51)
[2017-05-04] MEDS: Magnesium Oxide TAB* 400 MG PO SCH (08:51)
[2017-05-04] MEDS: Aspirin TAB* 325 MG PO SCH (08:51)
[2017-05-04] MEDS: Cholecalciferol TAB* 1000 UNITS PO SCH (08:52)
[2017-05-04] MEDS ORDERED: Diltiazem CD CAP* 120 MG PO SCH (09:00)
[2017-05-04] MEDS: Diltiazem CD CAP* 120 MG PO SCH (11:38)
[2017-05-04] MEDS: Metoprolol Succinate XL TAB* 25 MG PO SCH (11:38)
--- NOTE | 2017-05-04 12:47 | PN ---
Subjective Date of Service: 05/04/17 Interval History: Pt seen and examined at bedside. Pt has nausea yesterday and was unable to complete stress test. Today she feels better and completed the stress portion without difficulty. Patient states she was not wearing her CPAP the night this episode happenned. Family History: Unchanged from Admission Social History: Unchanged from Admission Past Medical History: Unchanged from Admission Objective Active Medications: Acetaminophen (Tylenol Tab*) 650 mg PO Q4H PRN Aspirin (Aspirin Tab*) 325 mg PO DAILY CAIT Cholecalciferol (Vitamin D Tab*) 5,000 units PO DAILY CAIT Diltiazem HCl (Cardizem Cd Cap*) 120 mg PO DAILY CAIT Heparin Sodium (Porcine) (Heparin Vial(*)) 5,000 units SUBCUT Q8HR CAIT Lisinopril (Prinivil Tab*) 20 mg PO DAILY CAIT Magnesium Oxide (Magox 400 Tab*) 400 mg PO DAILY CAIT Metoprolol Succinate (Toprol Xl Tab*) 12.5 mg PO DAILY CAIT Omeprazole (Prilosec Cap*) 20 mg PO DAILY@0730 CAIT Ondansetron HCl (Zofran Inj*) 4 mg IV Q6H PRN Prochlorperazine Edisylate (Compazine Inj*) 10 mg IV Q6H PRN Vital Signs Temp Pulse Resp BP Pulse Ox 97.9 F 84 16 145/90 96 05/04/17 08:31 05/04/17 08:31 05/04/17 08:31 05/04/17 08:31 05/04/17 08:31 Oxygen Devices in Use Now: None Appearance: sitting up in bed, NAD Eyes: No Scleral Icterus, PERRLA Ears/Nose/Mouth/Throat: NL Teeth, Lips, Gums, Clear Oropharnyx, Mucous Membranes Moist Neck: NL Appearance and Movements; NL JVP Respiratory: Symmetrical Chest Expansion and Respiratory Effort, Clear to Auscultation Cardiovascular: NL Sounds; No Murmurs; No JVD, RRR Abdominal: NL Sounds; No Tenderness; No Distention Extremities: No Edema Skin: No Rash or Ulcers Neurological: Alert and Oriented x 3, NL Muscle Strength and Tone Lines/Tubes/Other Access: Clean, Dry and Intact Peripheral IV Nutrition: Taking PO's Result Diagrams: 05/03/17 06:10 05/04/17 06:19 Additional Lab and Data: . Assess/Plan/Problems-Billing Pt is a 41 y/o F w/ PMH significant for HTN, atypical chest pain in the past who presented to the ED w/ the c/o of palpitations and chest pain. - Patient Problems (1) Chest pain Comment: Troponin negative, EKG stable. Patient completed 1st part of stress test and preliminary results shows perfusion defect on inferior wall. She will need to stay tonight to have resting portion in the morning. Continue cardizem , Toprol, and ASA. LDL and Cholesterol bordeline. Likely this episode (and tachycardia) from not wearing CPAP at night. (2) GERD (gastroesophageal reflux disease) Comment: Continue Protonix (3) Hypertension Comment: Continue Lisinopril, Cardizem and Toprol. (4) CECILE (obstructive sleep apnea) Comment: Home CPAP. (5) DVT prophylaxis Comment: HSQ (6) Full code status Status and Disposition: OBV for palpitations and chest pain. Will need 2 day stress test. Discharge home tomorrow AM after 2nd part of stress test.
[2017-05-04] MEDS: Acetaminophen TAB* 325 MG PO PRN (17:33)
[2017-05-05] MEDS: Heparin VIAL(*) 5000 UNITS/ML VIAL (FIVE THOUSAND) SUBCUT SCH ×3 (06:04→22:18)
--- NOTE | 2017-05-05 08:39 | RAD ---
Edited for charges. INDICATION: Chest pain in a woman with multiple cardiac risk factors. COMPARISON: Chest x-ray dated May 03, 2017 TECHNIQUE: SPECT imaging was performed. Stress images were acquired following the intravenous injection of 25 millicuries of technetium 99m tetrofosmin on May 04, 2016. On May 05, 2016 rest images were acquired following the intravenous administration of 25 millicuries of technetium 99m tetrofosmin. A target heart rate of 160 bpm was obtained which is approximately 90% of the patient's maximum heart rate. The patient was unable to raise her arms for the purpose of CT imaging and therefore attenuation correction images were not obtained. This limits the quality of the study. FINDINGS: On the stress images there is slight relative reduction in uptake along the inferior myocardium relative to the rest images. On the dynamic images there appears to be complete apposition of the endocardium during contraction. No paradoxical wall motion is observed on the dynamic cardiac images. The ejection fraction is calculated to be 64% on the rest images and 65% on the stress images. IMPRESSION: There is a slight relative decrease in uptake at the inferior myocardium on the stress images relative to the rest images. This appearance could simply be the consequence of not being able to obtain attenuation correction images, but inferior wall ischemia cannot BE completely excluded on this imaging alone. ASSESSMENT: Intermediate risk Based on imaging criteria from ACC/AHA 2002 Guideline Update for the Management of Patients With Chronic Stable Angina Table 23. Noninvasive Risk Stratification. MTDD
[2017-05-05] MEDS: Diltiazem CD CAP* 120 MG PO SCH (10:28)
[2017-05-05] MEDS: Aspirin TAB* 325 MG PO SCH (10:28)
[2017-05-05] MEDS: Cholecalciferol TAB* 1000 UNITS PO SCH (10:28)
[2017-05-05] MEDS: Metoprolol Succinate XL TAB* 25 MG PO SCH (10:28)
[2017-05-05] MEDS: Omeprazole CAP* 20 MG PO SCH (10:28)
[2017-05-05] MEDS: Lisinopril TAB* 10 MG PO SCH (10:29)
[2017-05-05] MEDS: Magnesium Oxide TAB* 400 MG PO SCH (10:29)
--- NOTE | 2017-05-05 12:23 | PN ---
Subjective Date of Service: 05/05/17 Interval History: Patient seen and examined at bedside. Pt denies chest discomfort at rest, but reports chest discomfort that radiates to her left shoulder blade with ambulation. Describes this as a "burning sensation". Denies fever, chills, shortness of breath, N/V/D. Pt also reports having shortness of breath on Tuesday when walking to her car after work and this resolved after 20-30 minutes of sitting in her car. Pt also reports almost passing out while grocery shopping on Tuesday, reported feeling "like the floor was coming towards her head ". Pt reports feeling palpitations and like her heart rate is fast when ambulating. Tele: Sinus rhythm, rate 70-80's. Few PVCs noted. Family History: Unchanged from Admission Social History: Unchanged from Admission Past Medical History: Unchanged from Admission Objective Active Medications: Acetaminophen (Tylenol Tab*) 650 mg PO Q4H PRN Reason: PAIN Aspirin (Aspirin Tab*) 325 mg PO DAILY CAIT Cholecalciferol (Vitamin D Tab*) 5,000 units PO DAILY CAIT Diltiazem HCl (Cardizem Cd Cap*) 120 mg PO DAILY CAIT Heparin Sodium (Porcine) (Heparin Vial(*)) 5,000 units SUBCUT Q8HR CAIT Lisinopril (Prinivil Tab*) 20 mg PO DAILY CAIT Magnesium Oxide (Magox 400 Tab*) 400 mg PO DAILY CAIT Metoprolol Succinate (Toprol Xl Tab*) 12.5 mg PO DAILY CAIT Omeprazole (Prilosec Cap*) 20 mg PO DAILY@0730 CAIT Ondansetron HCl (Zofran Inj*) 4 mg IV Q6H PRN Reason: NAUSEA Prochlorperazine Edisylate (Compazine Inj*) 10 mg IV Q6H PRN Reason: NAUSEA/ VOMITING Vital Signs 05/04/17 05/04/17 05/04/17 12:30 15:01 19:17 Temperature 97.6 F 97.8 F 97.9 F Pulse Rate 81 84 82 Respiratory 16 18 16 Rate Blood Pressure 139/86 146/78 120/68 (mmHg) O2 Sat by Pulse 98 97 98 Oximetry 05/04/17 05/05/17 05/05/17 22:41 03:25 08:15 Temperature 97.5 F 97.6 F 98.5 F Pulse Rate 88 74 81 Respiratory 18 16 16 Rate Blood Pressure 135/59 113/58 107/68 (mmHg) O2 Sat by Pulse 95 95 92 Oximetry Oxygen Devices in Use Now: None Appearance: NAD, sitting up in chair Ears/Nose/Mouth/Throat: Mucous Membranes Moist Respiratory: Symmetrical Chest Expansion and Respiratory Effort, Clear to Auscultation Cardiovascular: NL Sounds; No Murmurs; No JVD, RRR Abdominal: NL Sounds; No Tenderness; No Distention Extremities: No Edema Skin: No Rash or Ulcers Neurological: Alert and Oriented x 3, NL Muscle Strength and Tone Lines/Tubes/Other Access: Clean, Dry and Intact Peripheral IV - site benign Nutrition: Taking PO's Result Diagrams: 05/03/17 06:10 05/04/17 06:19 Diagnostic Imaging: -05/05/17 - NM MYOCARDIAL MULTI RESTING; NUCLEAR CARDIAC STRESS TEST FINDINGS: On the stress images there is slight relative reduction in uptake along the inferior myocardium relative to the rest images. On the dynamic images there appears to be complete apposition of the endocardium during contraction. No paradoxical wall motion is observed on the dynamic cardiac images. The ejection fraction is calculated to be 64% on the rest images and 65% on the stress images. IMPRESSION: There is a slight relative decrease in uptake at the inferior myocardium on the stress images relative to the rest images. This appearance could simply be the consequence of not being able to obtain attenuation correction images, but inferior wall ischemia cannot BE completely excluded on this imaging alone. ASSESSMENT: Intermediate risk Based on imaging criteria from ACC/AHA 2002 Guideline Update for the Management of Patients With Chronic Stable Angina Table 23. Noninvasive Risk Stratification. Assess/Plan/Problems-Billing Ms. Connor is a 41 y/o F w/ PMH significant for HTN, atypical chest pain in the past who presented to the ED w/ the c/o of palpitations and chest pain. - Patient Problems (1) Chest pain Code(s): R07.9 - CHEST PAIN, UNSPECIFIED SNOMED Code(s): 32901320 Comment: - Suspect this episode (and tachycardia) may be from not wearing CPAP at night. - Troponin negative, EKG stable. - Stress test - 1st part - preliminary results shows perfusion defect on inferior wall. 2nd resting part results show slight decrease in uptake at the inferior myocardium on the stress images at rest. Intermediate risk. - LDL and Cholesterol bordeline. - Cardiology consult, pending - Continue cardizem, Toprol, and ASA. (2) GERD (gastroesophageal reflux disease) Code(s): K21.9 - GASTRO-ESOPHAGEAL REFLUX DISEASE WITHOUT ESOPHAGITIS SNOMED Code(s): 250522242 Comment: - Continue PPI (3) History of TIA (transient ischemic attack) Comment: - Continue ASA (4) Hypertension Code(s): I10 - ESSENTIAL (PRIMARY) HYPERTENSION SNOMED Code(s): 52575854 Comment: - SBP 100-130's. - Continue Lisinopril, Cardizem and Toprol. (5) CECILE (obstructive sleep apnea) Code(s): G47.33 - OBSTRUCTIVE SLEEP APNEA (ADULT) (PEDIATRIC) SNOMED Code(s): 63755501 Comment: - Home CPAP. (6) DVT prophylaxis Code(s): LZI3251 - SNOMED Code(s): 580449839 Comment: - HSQ (7) Full code status Code(s): Z78.9 - OTHER SPECIFIED HEALTH STATUS SNOMED Code(s): 169814969 Status and Disposition: OBV for palpitations and chest pain. Will need 2 day stress test. Possible discharge home later today after Cardiology consult.
[2017-05-05] MEDS ORDERED: Nitroglycerin TAB 0.4 MG* 0.4 MG TAB ONE (12:57)
--- NOTE | 2017-05-05 13:30 | CONSULT ---
Subjective Date of Service: 05/05/17 Interval History: Admission Date: 05/03/17 Consult date 05/05/2017 Provider: Hospitalist PMD: Dr. Cabrera Fashion Patternmaker: Dr. Zayas CHIEF COMPLAINT: Chest pain Reason for consult: Chest pain HISTORY OF PRESENT ILLNESS: Ms. Connor is a 41-year-old woman with longstanding atypical chest pain, obesity , HTN, TIA, focal segmental glomerular sclerosis/proteinuria iwth normal renal function, GERD, tobacco use quit 07/2016, family history of cardiovascular disease (father cardiac arrest age 56, maternal GF cardiac related age 51). 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 AT the end of the shift she felt "dizzy and off." She had significant dyspnea walking to her car and her legs felt funny. She sat in the car and had left burning chest discomfort also present on an opposite side of her back. This lasted about 10-15 minutes and resolved. Woke up Tuesday was running errands and felt like she was going to pass out, like the ground was going ot her her face associated with the same chest burning. Tuesday her heart was "pounding in the 130's" and had dyspnea and sweating associated with the chest discomfort. she called ES, had nitroglycerine that eased pain. Symptoms have improved, none at rest now. She ruled out with serial troponins and normal EKG. She is on dual anti-anginals including diltiazem and metoprolol currently as an outpatient and here currently. Stress test she went 5 minutes, reproduced her symptoms, no EKG changes, normal LVEF, nuclear perfusion images showed a small inferior defect that is ? ischemic vs. diaphragmatic attenuation. Within a shepard length on 4 south I ambulated her and after 1/2 way around 4 south she developed dyspnea and the chest and back burning 6/10 by completion of lap around hallway and was tearful with this. She sat down and symptoms improved over several minutes to 2/10 and resolved completely within 20 seconds of SL NTG x 1. She states these symptoms are not like her prior chest pain episodes for which she had a normal dobutamine stress echo in 2015 and exercise stress echo in 2012. She does use a PPI and and also has degenerative disc disease. I am unable to reproduce any of her symptoms with palpitation, various arm movements or spurling test. Of note, her friend Sloane who is with her is a [facility] wardrobe stylist had these exact same symptoms and had a "99% circumflex" stented. She denies any blood transfusions or contrast reactions. PAST MEDICAL HISTORY: as above PAST SURGICAL HISTORY: Cholecystectomy, appendectomy, tonsillectomy, total hysterectomy. HOME MEDICATIONS: Include: 1. Aspirin 325 mg oral daily. 2. Cardizem 120 mg oral daily. 3. Lisinopril 20 mg oral daily. 4. Toprol 12.5 mg oral daily. 5. Mag oxide 400 mg oral daily. 6. Vitamin D 5000 units oral daily. 7. Torsemide 20 mg oral daily as needed. 8. Protonix 40 mg oral daily. ALLERGIES: NSAIDS, NARCOTICS (nausea and vomiting) FAMILY HISTORY: as above SOCIAL HISTORY: The patient is a former smoker, she quit almost a year ago. She smoked a pack daily for 20 years. Drinks alcohol occasionally. Denies any drug use. Consumes 3 cups of coffee a day. Sporadic exercise. Medications Active Medications: Acetaminophen (Tylenol Tab*) 650 mg PO Q4H PRN PRN Reason: PAIN Last Admin: 05/04/17 17:33 Dose: 650 mg Aspirin (Aspirin Tab*) 325 mg PO DAILY [facility] Last Admin: 05/05/17 10:28 Dose: 325 mg Cholecalciferol (Vitamin D Tab*) 5,000 units PO DAILY [facility] Last Admin: 05/05/17 10:28 Dose: 5,000 units Diltiazem HCl (Cardizem Cd Cap*) 120 mg PO DAILY [facility] Last Admin: 05/05/17 10:28 Dose: 120 mg Heparin Sodium (Porcine) (Heparin Vial(*)) 5,000 units SUBCUT Q8HR [facility] Last Admin: 05/05/17 06:04 Dose: 5,000 units Lisinopril (Prinivil Tab*) 20 mg PO DAILY [facility] Last Admin: 05/05/17 10:29 Dose: 20 mg Magnesium Oxide (Magox 400 Tab*) 400 mg PO DAILY [facility] Last Admin: 05/05/17 10:29 Dose: 400 mg Metoprolol Succinate (Toprol Xl Tab*) 12.5 mg PO DAILY [facility] Last Admin: 05/05/17 10:28 Dose: 12.5 mg Omeprazole (Prilosec Cap*) 20 mg PO DAILY@0730 [facility] Last Admin: 05/05/17 10:28 Dose: 20 mg Ondansetron HCl (Zofran Inj*) 4 mg IV Q6H PRN PRN Reason: NAUSEA Last Admin: 05/03/17 11:43 Dose: 4 mg Prochlorperazine Edisylate (Compazine Inj*) 10 mg IV Q6H PRN PRN Reason: NAUSEA/VOMITING Home Medications: Lisinopril TAB* [Prinivil TAB 10 MG*] 20 mg PO DAILY 05/10/16 [History Confirmed 05/03/17] Pantoprazole TAB (NF) [Protonix TAB (NF)] 40 mg PO DAILY 05/10/16 [History Confirmed 05/03/17] Torsemide TAB* [Demadex 20 MG*] 20 mg PO DAILY PRN 05/10/16 [History Confirmed 05/03/17] Aspirin TAB* [Aspirin 325 MG TAB*] 325 mg PO DAILY 05/03/17 [History Confirmed 05/03/17] Cholecalciferol TAB* [Vitamin D TAB*] 5,000 units PO DAILY 05/03/17 [History Confirmed 05/03/17] Diltiazem CD CAP* [Cardizem CD CAP*] 120 mg PO DAILY 05/03/17 [History Confirmed 05/03/17] Magnesium Oxide TAB* [MagOx 400 TAB*] 400 mg PO DAILY 05/03/17 [History Confirmed 05/03/17] Metoprolol Succinate XL TAB* [Toprol XL TAB*] 12.5 mg PO DAILY 05/03/17 [ History Confirmed 05/03/17] Review of Systems - Measurements Intake and Output: Intake and Output Last 24 Hours 05/03/17 05/04/17 05/05/17 05/06/17 06:59 06:59 06:59 06:59 Intake Total 180 2750 Output Total 1400 0 Balance -1220 2750 Weight 279 lb 14.4 oz Intake: IV Fluids 20 50 IVPB 160 Oral 0 2700 Output: Urine 1400 0 Other: # Bowel Movements 0 0 # Voids 0 0 - Review of Systems Constitutional Symptoms: Negative: Weight Gain, Weight Loss, Weakness, Fatigue, Fever, Night Sweats Dermatology: Negative: Rash, Skin Lesions HEENT: Negative: Change in Hearing, Vertigo, Tinnitus Eyes: Negative: Change in Vision, Double Vision, Glaucoma, Cataracts Thyroid: Negative: Goiter, Thyroid Nodule, Cold Intolerance, Heat Intolerance, Tremor , Frequent Defecation, Constipation, Palpitations, Primary Hypothyroidism, Primary Hyperthyroidism, Weight Loss, Weight Gain, Change in Skin/Hair, Change in Menstration Pulmonary: Positive: Shortness of Breath, Exercise Intolerance Negative: Cough, Sputum, Hemoptysis, Wheezing, COPD, Asthma, Home Oxygen Cardiology: Positive: Chest Pain, Shortness of Breath, Palpitations Negative: Swelling of Ankles, Peripheral Vascular Dis, Edema, Faintness, Syncope, Claudication, Paroxysmal Nocturnal Dyspnea, Orthopnea Gastroenterology: Positive: Nausea Negative: Abdominal Pain, Vomiting, Anorexia, Indigestion, Difficulty Swallowing, Blood in Stools, Change in Bowel Habits, Haematemesis, Melena Genital - Urinary: Negative: Dysuria, Hematuria Musculoskeletal: Negative: Joint Pain, Joint Stiffness, Arthritis, Osteoporosis, Low Back Pain Endocrinology: Positive: Obesity Negative: Diabetes, Hyperglycemia, Hypoglycemia, Polydipsia, Polyuria Hematologic/Lymphatic: Negative: Anemia, Easy Brusing, Use of Anticoagulant, Use of Antiplatelet Drugs Neurology: Negative: Headaches, Migraines, Change in Vision, Diplopia, Dizziness, Change in Balancing, Change in Coordination, Change in Memory, Hx of Stroke\\TIA , Hx Seizures Psychiatry: Negative: Depressed Mood, Adhedonia, Sexual Dysfunction Allergic/Immunologic: Negative: Hx Anaphylaxis, Hx Angioedema, Hx Environmental Allergies, Hx Seasonal Allergies, Hx HIV Review of Systems Statement: All other review of systems negative, unless stated above. Objective Vital Signs: Temp Pulse Resp BP Pulse Ox 98.5 F 81 16 107/68 92 05/05/17 08:15 05/05/17 08:15 05/05/17 08:15 05/05/17 08:15 05/05/17 08:15 Oxygen Devices in Use Now: None Appearance: nad, not anxious appearing Ears/Nose/Mouth/Throat: Clear Oropharnyx Neck: NL Appearance and Movements; NL JVP, Trachea Midline Respiratory: Symmetrical Chest Expansion and Respiratory Effort, Clear to Auscultation Cardiovascular: NL Sounds; No Murmurs; No JVD, RRR, No Edema Abdominal: NL Sounds; No Tenderness; No Distention Extremities: No Edema Skin: No Rash or Ulcers Neurological: Alert and Oriented x 3 Laboratory Results: 05/03/17 06:10 05/04/17 06:19 INR (Anticoag Therapy) 0.89 (0.89-1.11) 05/03/17 06:10 APTT 27.9 seconds (26.0-36.3) 05/03/17 06:10 Total Bilirubin 0.20 mg/dL (0.2-1.0) 05/03/17 06:10 AST 19 U/L (13-39) 05/03/17 06:10 ALT 29 U/L (7-52) 05/03/17 06:10 Alkaline Phosphatase 74 U/L (34-104) 05/03/17 06:10 CK-MB (CK-2) 1.8 ng/mL (0.6-6.3) 05/03/17 06:10 B-Natriuretic Peptide 10 pg/mL (-100) 05/03/17 06:10 Total Protein 6.6 g/dL (6.4-8.9) 05/03/17 06:10 Albumin 4.0 g/dL (3.2-5.2) 05/03/17 06:10 Globulin 2.6 g/dL (2-4) 05/03/17 06:10 Albumin/Globulin Ratio 1.5 (1-3) 05/03/17 06:10 Triglycerides 180 mg/dL 05/03/17 06:10 Cholesterol 182 mg/dL 05/03/17 06:10 LDL Cholesterol 101 mg/dL 05/03/17 06:10 HDL Cholesterol 45.4 mg/dL 05/03/17 06:10 TSH 4.51 mcIU/mL (0.34-5.60) 05/03/17 06:10 05/03/17 05/03/17 06:10 11:54 Troponin I 0.00 0.00 Diagnostic Imaging: ekg 05/03/2017: NSR, no ischemic changes cxr 05/03/2017: no acute disease Assessment/Plan I discussed with Keturah that I am unsure the cause of her symptoms. She is very concerned about a cardiac cause. Despite her young age, she does have CAD risk factors including but not limited to obesity with HTN, prior tobacco use and family history. She continues to have disabling symptoms despite 2 anti- anginals toprol and diltiazem and has had symptoms at rest in an unstable pattern. We discussed risks and benefits of further evaluation of a coronary angiogram to further diagnose and she would very much prefer this option even after hearing risks of things including but not limited to stroke, renal failure , vascular access site complications, stroke, heart attack or . Given her symptom status on medications, I also think that if obstructive CAD is found she would benefit from coronary revascularization such as PCI although we discussed this may prevent future cardiac events, it might not have a mortality benefit over medical therapy. She expressed understanding of this and wishes to proceed. Will arrange for coronary angiogram tomorrow with Dr. Middleton ( discuss in person)
[2017-05-06] MEDS ORDERED: NS 0.9% 1000 ML* 1,000 ML IV SCH ×2 (07:00→11:30)
[2017-05-06] MEDS: Cholecalciferol TAB* 1000 UNITS PO SCH (08:16)
[2017-05-06] MEDS: Aspirin TAB* 325 MG PO SCH (08:17)
[2017-05-06] MEDS: Diltiazem CD CAP* 120 MG PO SCH (08:17)
[2017-05-06] MEDS: Lisinopril TAB* 10 MG PO SCH (08:17)
[2017-05-06] MEDS: Omeprazole CAP* 20 MG PO SCH (08:18)
[2017-05-06] MEDS: Magnesium Oxide TAB* 400 MG PO SCH (08:18)
[2017-05-06] MEDS: Metoprolol Succinate XL TAB* 25 MG PO SCH (08:19)
--- NOTE | 2017-05-06 08:58 | PN ---
Subjective Date of Service: 05/06/17 Interval History: Patient seen and examined at bedside. Denies fever, chills, N/V/D. Pt states that she continues to have left sided chest discomfort with ambulation and occasionally at rest. She also reports having shortness of breath while walking quickly with Dr. Mendiola yesterday. Tele: Sinus rhythm, rate 70-80's. Family History: Unchanged from Admission Social History: Unchanged from Admission Past Medical History: Unchanged from Admission Objective Active Medications: Acetaminophen (Tylenol Tab*) 650 mg PO Q4H PRN Reason: PAIN Aspirin (Aspirin Tab*) 325 mg PO DAILY [facility] Cholecalciferol (Vitamin D Tab*) 5,000 units PO DAILY [facility] Diazepam (Valium Tab(*)) 5 mg PO ONCE ONE Stop: 05/06/17 09:01 Diltiazem HCl (Cardizem Cd Cap*) 120 mg PO DAILY [facility] Diphenhydramine HCl (Benadryl Po*) 50 mg PO ONCE ONE Stop: 05/06/17 09:01 Sodium Chloride (Ns 0.9% 1000 Ml*) 1,000 mls @ 100 mls/hr IV .per rate [facility] Lisinopril (Prinivil Tab*) 20 mg PO DAILY [facility] Magnesium Oxide (Magox 400 Tab*) 400 mg PO DAILY [facility] Metoprolol Succinate (Toprol Xl Tab*) 12.5 mg PO DAILY [facility] Omeprazole (Prilosec Cap*) 20 mg PO DAILY@0730 [facility] Ondansetron HCl (Zofran Inj*) 4 mg IV Q6H PRN Reason: NAUSEA Prochlorperazine Edisylate (Compazine Inj*) 10 mg IV Q6H PRN Reason: NAUSEA/ VOMITING Vital Signs 05/05/17 05/05/17 05/05/17 15:06 19:46 20:00 Temperature 98.7 F 98.1 F Pulse Rate 88 88 Respiratory 16 18 16 Rate Blood Pressure 114/60 112/69 (mmHg) O2 Sat by Pulse 96 97 Oximetry 05/06/17 05/06/17 05/06/17 00:14 03:56 07:18 Temperature 97.5 F 97.9 F 97.8 F Pulse Rate 84 85 80 Respiratory 20 16 16 Rate Blood Pressure 122/47 115/64 125/84 (mmHg) O2 Sat by Pulse 95 97 96 Oximetry Oxygen Devices in Use Now: None Appearance: NAD, sitting up in a chair Respiratory: Symmetrical Chest Expansion and Respiratory Effort, Clear to Auscultation Cardiovascular: NL Sounds; No Murmurs; No JVD, RRR Abdominal: NL Sounds; No Tenderness; No Distention Extremities: No Edema Skin: No Rash or Ulcers Neurological: Alert and Oriented x 3, NL Muscle Strength and Tone Lines/Tubes/Other Access: Clean, Dry and Intact Peripheral IV - site benign Nutrition: Taking PO's Result Diagrams: 05/03/17 06:10 05/04/17 06:19 Diagnostic Imaging: -05/05/17 - NM MYOCARDIAL MULTI RESTING; NUCLEAR CARDIAC STRESS TEST FINDINGS: On the stress images there is slight relative reduction in uptake along the inferior myocardium relative to the rest images. On the dynamic images there appears to be complete apposition of the endocardium during contraction. No paradoxical wall motion is observed on the dynamic cardiac images. The ejection fraction is calculated to be 64% on the rest images and 65% on the stress images. IMPRESSION: There is a slight relative decrease in uptake at the inferior myocardium on the stress images relative to the rest images. This appearance could simply be the consequence of not being able to obtain attenuation correction images, but inferior wall ischemia cannot BE completely excluded on this imaging alone. ASSESSMENT: Intermediate risk Based on imaging criteria from ACC/AHA 2002 Guideline Update for the Management of Patients With Chronic Stable Angina Table 23. Noninvasive Risk Stratification. Assess/Plan/Problems-Billing Ms. Connor is a 41 y/o F w/ PMH significant for HTN, atypical chest pain in the past who presented to the ED w/ the c/o of palpitations and chest pain. - Patient Problems (1) Chest pain Code(s): R07.9 - CHEST PAIN, UNSPECIFIED SNOMED Code(s): 42290654 Comment: - Suspect this episode (and tachycardia) may be from not wearing CPAP at night. - Troponin negative, EKG stable. - Stress test - 1st part - preliminary results shows perfusion defect on inferior wall. 2nd resting part results show slight decrease in uptake at the inferior myocardium on the stress images at rest. Intermediate risk. - LDL and Cholesterol bordeline. - Cardiology consult, input appreciated - Cardiac cath pending - Continue cardizem, Toprol, and ASA. (2) GERD (gastroesophageal reflux disease) Code(s): K21.9 - GASTRO-ESOPHAGEAL REFLUX DISEASE WITHOUT ESOPHAGITIS SNOMED Code(s): 519806130 Comment: - Continue PPI (3) History of TIA (transient ischemic attack) Comment: - Continue ASA (4) Hypertension Code(s): I10 - ESSENTIAL (PRIMARY) HYPERTENSION SNOMED Code(s): 28426018 Comment: - SBP 100-120's. - Continue Lisinopril, Cardizem and Toprol. (5) CECILE (obstructive sleep apnea) Code(s): G47.33 - OBSTRUCTIVE SLEEP APNEA (ADULT) (PEDIATRIC) SNOMED Code(s): 65453661 Comment: - Home CPAP. (6) DVT prophylaxis Code(s): LKA9429 - SNOMED Code(s): 973193101 Comment: - HSQ (7) Full code status Code(s): Z78.9 - OTHER SPECIFIED HEALTH STATUS SNOMED Code(s): 064066991 Status and Disposition: Inpatient for palpitations and chest pain. Discharge to home when medically stable, possible discharge home later today after Cardiac cath.
[2017-05-06] MEDS ORDERED: diPHENhydraMINE PO* 50 MG PO ONE (09:00)
[2017-05-06] MEDS ORDERED: Diazepam TAB(*) 5 MG PO ONE (09:00)
[2017-05-06] MEDS ORDERED: fentaNYL* 50 MCG/ML 2 ML VIAL (100 MCG VIAL) ONE (09:51)
[2017-05-06] MEDS ORDERED: Lidocaine 1% INJ* 10 MG/ML 30 ML SDV ONE (09:52)
[2017-05-06] MEDS ORDERED: Heparin 2 UNITS/ML IVPREMIX* 3,000 ML IV ONE (09:52)
[2017-05-06] MEDS ORDERED: VERAPAMIL 2.5 MG/ML 4 ML VIAL ONE (09:52)
[2017-05-06] MEDS ORDERED: nitroGLYCERIN DRIP* 25,000 MCG/250 ML BTL ONE (09:52)
[2017-05-06] MEDS ORDERED: Heparin(*) 1000 UNIT/ML 10 ML VIAL CATH LAB IV ONE (09:52)
[2017-05-06] MEDS ORDERED: Iohexol 350 (CONTRAST) 200 ML MDV IV ONE (09:53)
[2017-05-06] MEDS ORDERED: Midazolam* 1 MG/ML 10 ML VIAL (10 MG) ONE (09:53)
[2017-05-06 13:20] VITALS: BP 108/68
--- NOTE | 2017-05-07 04:01 | CATH ---
CC: Dr. Cabrera; Dr. Zayas. CATH REPORT: DATE OF PROCEDURE: 05/06/17. PRIMARY CARE PHYSICIAN: Dr. Cabrera. WAREHOUSE CONSULTANT: Dr. Zayas. PROCEDURES: Right radial artery access, bilateral selective coronary cineangiography. HISTORY: A 41-year-old woman with relatively atypical chest pain syndrome, previous stress imaging, low risk, who continues to have chest discomfort with exertion as well as 1 episode at rest in spite of 2 antianginals. Because of recurring chest pain on medical therapy, repeated admissions, she is u ndergoing diagnostic catheterization to definitely evaluate for the presence of coronary artery disea se. PROCEDURE ACCESS: Right radial artery sheath 6F slender. MEDICATIONS: 1. Subcu lidocaine. 2. IV Versed. 3. IV fentanyl. 4. Heparin 3000 units. 5. Verapamil 3 mg. 6. Nitroglycerin 300 mcg IA. DIAGNOSTIC CATHETERS: 5F TIG4, 5FL 3.5. HEMODYNAMICS: Initial BP 143/80, final BP 152/66. ANGIOGRAPHY: RCA: The RCA is large, dominant, smooth, supplies a moderate PDA and a small posterola teral, the RCA has no stenosis or culprit lesion. Left Main: The left main is normal in size and length, has no stenosis, is smooth. LAD: The LAD is large, extends to the apex, it is without stenosis. Circumflex: The circumflex is large, not dominant, supplies a large ramus branch, ends with a modera te posterolateral and more distal smaller posterolateral. The circumflex has no stenosis. CONCLUSION: 1. No obstructive coronary artery disease. 2. Normal right radial artery access. 3. False positive stress imaging study. [id number]/[facility] #: [id number]
--- NOTE | 2017-05-07 12:39 | DS ---
CC: Dr. Bruno Cabrera * DISCHARGE SUMMARY: DATE OF ADMISSION: 05/03/17 DATE OF DISCHARGE: 05/06/17 ATTENDING PHYSICIAN: Dr. Keagan Blair * (dictated by Maria R Shrestha NP) . PRIMARY CARE PROVIDER: Dr. Bruno Cabrera. PRIMARY GENERAL INTERNAL MEDICINE DOCTOR: Dr. Tuan Zayas. CONSULTATIONS WHILE IN THE HOSPITAL: 1. Dr. Lefty Mendiola with Cardiology. 2. Dr. Rosina Middleton with Interventional Cardiology. PROCEDURES WHILE IN THE HOSPITAL: Status post cardiac catheterization on by Dr. Roisna Middleton. Normal cardiac catheterization. STUDIES WHILE IN THE HOSPITAL: 1. Chest x-ray on 05/03/17. Radiologist's impression: No evidence for acute disease. 2. Nuclear cardiac stress test on 05/04/17 and 05/05/17. Student Liaison Officer's observation: Mild local left precordial chest pain. Resting EKG normal. ST changes none. Student Liaison Officer's conclusion: Negative maximal adequate stress, low risk Pedersen score EKG portion of exercise stress test. Radiologist's impression: There is slight relative decrease in uptake at the inferior myocardium on the stress images relative to the rest images. This appearance could simply be the consequence of not being able to obtain attenuation correction images, but inferior wall ischemia could not be completely excluded on the imaging alone. Assessment: Intermediate risk. DISCHARGE MEDICATIONS: Continue home medications: 1. Torsemide 20 mg oral daily as needed for bilateral lower extremity edema. 2. Diltiazem CD 120 mg oral daily. 3. Vitamin D 5000 units oral daily. 4. Magnesium oxide 400 mg oral daily. 5. Protonix 40 mg oral daily. 6. Metoprolol succinate 12.5 mg oral daily. 7. Lisinopril 20 mg oral daily. 8. Aspirin 325 mg oral daily. HISTORY OF PRESENT ILLNESS/HOSPITAL COURSE: Ms. Connor is a 41-year-old female with past medical history significant for atypical chest pain, palpitations, hypertension, TIA, who presented to the emergency room with an episode of tachycardia and chest discomfort. The patient states that she woke up in the night, sweating profusely. She checked her heart rate and noted to be between 130 and 136. She felt as though her heart was pounding. She also reported a burning sensation radiating to her arm and chest and pain that was not reproducible with palpation. She felt this pain was different than the pain she had previously experienced and had been almost a year since her previous episode of chest discomfort. The patient also reports not feeling right the day prior to admission, feeling dizzy while at grocery shopping. The patient called EMS and was brought to the emergency room for further evaluation of her symptoms. While in the emergency room, the patient received nitro and the pain started to improve. She had a chest x-ray with no significant finding. She had labs that were unremarkable, so we were asked to evaluate the patient for admission. While in the hospital, the patient underwent a 2-day protocol nuclear stress test. The stress test had an intermediate risk and Dr. Mendiola with cardiology was asked to consult on the patient. It was felt that the patient should undergo a cardiac catheterization to further evaluate her coronary arteries to better determine the cause of her chest pain. On 05/06/17, the patient underwent a cardiac catheterization with Dr. Middleton, where she was found to have clean coronaries. The patient continued to intermittently have chest discomfort with ambulation, but felt ready for discharge to home after her cardiac cath. Ms. Connor is stable for discharge to home today. PHYSICAL EXAMINATION: Vital signs are as follows: Temperature 97.6, heart rate 74, respiratory rate 16, O2 sat 95% on room air, blood pressure 108/68. DISCHARGE PLAN: Ms. Connor will be discharged to home. ACTIVITY: As tolerated. DIET: She should be on a heart healthy diet. FOLLOWUP: She has a followup appointment with Dr. Middleton on 05/11/17, at 11 a.m. for right wrist wound check. She also should be seen in followup by her primary care provider, Dr. Cabrera's office. Who should call the patient early next week to setup an appointment time. She has been asked to please call if they do not call her for the followup appointment. The patient has been provided with printed cardiac catheterization instructions. Points of discussion at followup: If the patient continues to have chest pain, I have encouraged her to further follow up with Dr. Zayas to see if adjusting of medications such as adding an antianginal could be beneficial to her. I have also discussed with her going to [facility] to assist with blood pressure control and weight management, if you could please assist her in getting a referral to [facility] as an outpatient. The patient has been instructed to return to the emergency room for any shortness of breath or changes in her chest discomfort or persistent chest discomfort. This is a summarized report of a complex medical history and hospital stay. For further, details please see the entire medical record. TIME SPENT: Time for this discharge was approximately 50 minutes, greater than half of that was spent with the patient discussing discharge plans and instructions. CONDITION ON DISCHARGE: Stable. Reviewed by MICHELLE GAR 05/09/17 1642 [id number]/[facility] #: [id number] [facility]
== END 2017-05-06 15:25 | disposition home or self-care (01) | DRG 192 ==
LOC: ED 05:50 → MEDTELE 07:27 → OBSVTOIN 05-05 13:27
PROVIDERS: ADMIT Internal Medicine; ATTEND Internal Medicine
PROC: B2111ZZ Fluoroscopy of Multiple Coronary Arteries using Low Osmolar Contrast (ICD-10-PCS; principal; 2017-05-06 10:00)
DX: R07.89 Other chest pain (principal); Z68.43 Body mass index [BMI] 50.0-59.9, adult; I10 Essential (primary) hypertension; Z86.73 Personal history of transient ischemic attack (TIA), and cerebral infarction without residual deficits; E04.1 Nontoxic single thyroid nodule; G47.33 Obstructive sleep apnea (adult) (pediatric); Z90.49 Acquired absence of other specified parts of digestive tract; Z90.710 Acquired absence of both cervix and uterus; Z88.6 Allergy status to analgesic agent; Z88.5 Allergy status to narcotic agent; Z82.49 Family history of ischemic heart disease and other diseases of the circulatory system; Z83.3 Family history of diabetes mellitus; Z87.891 Personal history of nicotine dependence; Z72.89 Other problems related to lifestyle; K21.9 Gastro-esophageal reflux disease without esophagitis; Z98.51 Tubal ligation status; Z83.2 Family history of diseases of the blood and blood-forming organs and certain disorders involving the immune mechanism; R11.0 Nausea; N26.9 Renal sclerosis, unspecified; E66.9 Obesity, unspecified; Z79.82 Long term (current) use of aspirin
CPT/HCPCS: 36415; 71010; 78452; 80048; 80053; 80061; 81003; 81015; 82550; 82553; 83605; 83690; 83735; 83880; 84443; 84484; 84702; 85025; 85379; 85610; 85730; 86140; 93005; 93017; 93454; 99156; 99157; A9270-GY; A9502; C1887; G0378; J1644; J2001; J2250; J2270; J2405; J3010; J3475

== ENCOUNTER 2018-05-09 10:37 | Emergency (ER) | payer BC ==
[2018-05-09 11:34] VITALS: BP 133/71
--- NOTE | 2018-05-09 11:36 | UC ---
Respiratory Complaint HPI - HPI Summary HPI Summary: 42 yo female presents with right ear pain, sinus pain/pressure/congestion, post nasal drip, and cough for the last 3-4 days. Last night she noticed some drainage on her pillow that she suspects is from her right ear. Has been taking nyquill and a daily cold/flu medication. Has felt feverish at times, but has not taken her temperature. Denies sore throat, SOB, chest pain, rash. - History of Current Complaint Chief Complaint: UCGeneralIllness Stated Complaint: HEAD/CHEST CONGESTION EAR PAIN Time Seen by Provider: 05/09/18 11:36 Hx Obtained From: Patient Hx Last Menstrual Period: 07/28/12 Onset/Duration: Gradual Onset Severity Initially: Mild Severity Currently: Mild Pain Intensity: 4 Pain Scale Used: 0-10 Numeric Character: Cough: Nonproductive - Allergies/Home Medications Allergies/Adverse Reactions: Allergies Allergy/AdvReac Type Severity Reaction Status Date / Time hydrocodone Allergy Intermediate vomitting Verified 05/09/18 11:51 NSAIDS (Non-Steroidal Allergy Intermediate kidney Verified 05/09/18 11:51 Anti-Inflamma damage oxycodone Allergy Intermediate vomitting Verified 05/09/18 11:51 Home Medications: Home Medications Acetaminophen [Acetaminophen Extra Strength] 1,000 mg PO ONCE 05/09/18 [History Confirmed 05/09/18] PMH/Surg Hx/FS Hx/Imm Hx Cardiovascular History: Cardiac Disease, Hypertension GI/ History: Gastroesophageal Reflux Other History Of: Negative For: Anticoagulant Therapy - Surgical History Surgical History: Yes Surgery Procedure, Year, and Place: lumbar L4/L5 discectomy x2, uterine ablation , tubal ligation, appendix, tonsillectomy, jaw fx repair, gallbladder removal, partial HYSTERECTOMY - Family History Known Family History: Positive: Cardiac Disease - CAD, CABG, Diabetes, Blood Disorder - DVT - Social History Occupation: Employed Full-time Lives: With Family Alcohol Use: Occasionally Substance Use Type: None Smoking Status (MU): Former Smoker Type: Cigarettes Amount Used/How Often: 07/2016 Length of Time of Smoking/Using Tobacco: 25 Have You Smoked in the Last Year: Yes Household Exposure Type: Cigarettes - Immunization History Most Recent Influenza Vaccination: 2017 Most Recent Tetanus Shot: within 10 years Most Recent Pneumonia Vaccination: none Review of Systems All Other Systems Reviewed And Are Negative: Yes Constitutional: Positive: Fever Skin: Positive: Negative Eyes: Positive: Negative ENT: Positive: Ear Ache, Nasal Discharge, Sinus Congestion, Sinus Pain/ Tenderness Respiratory: Positive: Cough Cardiovascular: Positive: Negative Gastrointestinal: Positive: Negative Neurovascular: Positive: Negative Neurological: Positive: Negative Psychological: Positive: Negative Physical Exam - Summary Physical Exam Summary: GENERAL: NAD. WDWN. No pain distress. SKIN: No rashes, sores, lesions, or open wounds. HEENT: Head: AT/NC Eyes: EOM intact. Conjunctiva clear without inflammation or discharge. Ears: Hearing grossly normal. RIGHT TM with mild erythema and bulging. No canal edema or drainage. LEFT TM WNL. Nose: Nasal mucosa mildly swollen and erythematous with yellow/ clear discharge. TTP maxillary and frontal sinus. Positive post nasal drip Throat: Posterior oropharynx without exudates, erythema, or tonsillar enlargement. Uvula midline. NECK: Supple. Nontender. No lymphadenopathy. CHEST: CTAB. No r/r/w. No accessory muscle use. Breathing comfortably and in no distress. CV: RRR. Without m/r/g. Pulses intact. NEURO: Alert. PSYCH: Age appropriate behavior. Triage Information Reviewed: Yes Vital Signs: Initial Vital Signs Temp 98.4 F 05/09/18 11:28 Pulse 87 05/09/18 11:28 Resp 18 05/09/18 11:28 BP 133/71 05/09/18 11:28 Pulse Ox 99 05/09/18 11:28 Vital Signs Reviewed: Yes Diagnostic Evaluation - Laboratory O2 Sat by Pulse Oximetry: 99 Respiratory Course/Dx - Course Course Of Treatment: Right otitis media. Sinusitis. Will treat with augmentin and have her take mucinex OTC - Differential Dx/Diagnosis Provider Diagnoses: Right otitis media. Sinusitis Discharge - Sign-Out/Discharge Documenting (check all that apply): Patient Departure All imaging exams completed and their final reports reviewed: No Studies - Discharge Plan Condition: Stable Disposition: HOME Prescriptions: Amoxicillin/Clavulanate TAB* [Augmentin TAB 875*] 875 mg PO BID #14 tab Patient Education Materials: Sinusitis (ED), Ear Infection (ED) Forms: *Work Release Referrals: Bruno Cabrera MD [Primary Care Provider] - Additional Instructions: If you develop a fever, shortness of breath, chest pain, new or worsening symptoms - please call your PCP or go to the ED. Your blood pressure was mildly elevated at todays visit. Please see your primary provider within 4 weeks for recheck and re-evaluation. - Billing Disposition and Condition Condition: STABLE Disposition: Home
== END 2018-05-09 11:57 | disposition home or self-care (01) ==
LOC: UCEAST 10:37
DX: H66.91 Otitis media, unspecified, right ear (principal); J32.9 Chronic sinusitis, unspecified; I10 Essential (primary) hypertension; Z88.5 Allergy status to narcotic agent; Z88.6 Allergy status to analgesic agent; Z87.891 Personal history of nicotine dependence
CPT/HCPCS: 99212; G0463

== ENCOUNTER 2018-07-25 07:30 | Inpatient (IN) | payer BC ==
[~2018-07-25 07:30] MED LIST changes: -Buffered Lidocaine 1% SYR 3ML* 3 ML/SYR SYRINGE INTRADERM ONE; +Buffered Lidocaine 1% SYRIN* 1 ML/SYRINGE INTRADERM ONE; -Dexamethasone IV* 4 MG/ML 1 ML (4 MG) IV SLOW PU ONE; +Lactated Ringers 1000 ML Bag* 1,000 ML IV SCH; +Scopolamine 1.5 mg* PATCH TRANSDERM SCH
[2018-07-25] MEDS ORDERED: Scopolamine 1.5 mg* PATCH ONE (13:20)
[2018-07-25] MEDS ORDERED: Heparin VIAL(*) 5000 UNITS/ML VIAL (FIVE THOUSAND) ONE (13:20)
[2018-07-25] MEDS ORDERED: Famotidine IV* 10 MG/ML 2 ML (20 mg) ONE (13:20)
[2018-07-25] MEDS ORDERED: ceFAZolin 1 GM ADVAN(*) 1 GM ADDV.VIAL IVPB ONE (13:20)
[2018-07-25] MEDS ORDERED: ceFAZolin 2 GM PREMIX in ORs 2 GM/50 ML BAG IVPB ONE (13:21)
[2018-07-25] MEDS ORDERED: fentaNYL* 50 MCG/ML 5 ML VIAL (250 MCG VIAL) ONE (13:55)
[2018-07-25] MEDS ORDERED: Midazolam* 1 MG/ML 5 ML VIAL (5 MG) ONE (13:55)
[2018-07-25] MEDS ORDERED: Lidocaine 2% PF * 5 ML VIAL ONE (13:56)
[2018-07-25] MEDS ORDERED: DiMENhydriNATE IV* 50 MG/ML VIAL ONE ×2 (13:56→18:45)
[2018-07-25] MEDS ORDERED: Dexamethasone IV* 4 MG/ML 1 ML (4 MG) ONE (13:56)
[2018-07-25] MEDS ORDERED: Ondansetron INJ* 2 MG/ML VIAL ONE ×2 (13:56→20:43)
[2018-07-25] MEDS ORDERED: Propofol* 10 MG/ML 20 ML BTL ONE ×2 (13:56→18:06)
[2018-07-25] MEDS ORDERED: Succinylcholine* 20 MG/ML 10 ML VIAL ONE (13:56)
[2018-07-25] MEDS ORDERED: Methylene Blue 0.5 %* 50 MG/10 ML AMP IV ONE (15:51)
[2018-07-25] MEDS ORDERED: Bupivacaine 0.5% W/EPI SDV* 30 ML VIAL ONE (15:51)
[2018-07-25] MEDS ORDERED: Rocuronium* 10 MG/ML VIAL ONE ×2 (16:04→17:23)
[2018-07-25] MEDS ORDERED: HYDROmorphone INJ1* 1 MG/ML SYRINGE ONE ×2 (17:59→19:01)
[2018-07-25] MEDS ORDERED: Metoprolol Tartrate IV* 1 MG/ML 5 ML VIAL ONE (18:03)
[2018-07-25] MEDS ORDERED: diPHENhydraMINE IV* 50 MG/ML 1 ml VIAL (BENADRYL) SLOW PUSH PRN (18:41)
[2018-07-25] MEDS ORDERED: Acetaminophen ADULT LIQ* 650 MG/20.3 ML UDC PO PRN (18:41)
[2018-07-25] MEDS ORDERED: HYDROmorphone INJ1* 1 MG/ML SYRINGE IV SLOW PU PRN ×2 (18:41)
--- NOTE | 2018-07-25 18:41 | OP ---
Operative Report - Blank - Operative Report Date of Operation: 07/25/18 Note: Brief Operative Note Preop Dx: morbid obesity Postop Dx: same Procedure: Laparoscopic Je En Y gastric bypass Anesthesia: GET Surgeon: Yashira Telegraph Repeater Installer: BENNY Wright; SUZIE Trinh Fluids: 1500 ml RL EBL: < 50 ml Specimen: none Drains: none Findings: dictated
[2018-07-25] MEDS ORDERED: DiMENhydriNATE IV* 50 MG/ML VIAL IV PUSH PRN (18:45)
[2018-07-25] MEDS ORDERED: Naloxone* 0.4 MG/ML 1 ML VIAL IV PRN (18:45)
[2018-07-25] MEDS ORDERED: Metoclopramide IV* 5 MG/ML 2 ML VIAL IV PRN (18:45)
[2018-07-25] MEDS ORDERED: HYDROmorphone INJ1* 1 MG/ML SYRINGE IV PRN (18:45)
[2018-07-25] MEDS ORDERED: Acetaminophen IV 1GM/100ML * 1,000 MG/100 ML VIAL IVPB ONE (18:45)
[2018-07-25] MEDS ORDERED: Acetaminophen IV 1GM/100ML * 100 ML ONE (18:48)
[2018-07-25] MEDS ORDERED: Metoclopramide IV* 5 MG/ML 2 ML VIAL ONE (18:48)
[2018-07-25] MEDS ORDERED: Metoprolol Tartrate IV* 1 MG/ML 5 ML VIAL IV PRN (18:52)
[2018-07-25] MEDS: Ondansetron INJ* 2 MG/ML VIAL IV PRN (20:46)
[2018-07-25] MEDS: Lactated Ringers 1000 ML Bag* 1,000 ML IV SCH (21:00)
[2018-07-25] MEDS: Famotidine IV* 10 MG/ML 2 ML (20 mg) IV SLOW PU SCH (22:17)
[2018-07-25] MEDS: Metoprolol Tartrate IV* 1 MG/ML 5 ML VIAL IV SCH (22:21)
[2018-07-25] MEDS: Heparin VIAL(*) 5000 UNITS/ML VIAL (FIVE THOUSAND) SUBCUT SCH (22:24)
--- NOTE | 2018-07-25 22:27 | OP ---
CC: [facility]; Bruno Cabrera MD * DATE OF OPERATION: 07/25/18 - ROOM #353 DATE OF : [birth year] SURGEON: Fabio Ac MD WATCH ENGINE OPERATOR: BENNY Alcaraz ANESTHESIOLOGIST: Dr. Hope. ANESTHESIA: General endotracheal. PRE-OP DIAGNOSIS: Morbid obesity. POST-OP DIAGNOSIS: Morbid obesity. PROCEDURE: Laparoscopic Ej-en-Y gastric bypass. ESTIMATED BLOOD LOSS: Less than 50 mL IV FLUIDS: Crystalloids. SPECIMEN: None. DRAINS: None. COMPLICATIONS: None. COUNTS: The instrument, needle and sponge counts were correct. DESCRIPTION OF PROCEDURE: The patient was brought to the operating room and placed on the table supine. Sequential compression devices were placed on both lower extremities. General anesthesia was administered. She was positioned and padded appropriately. She received appropriate intravenous antibiotics and she was prepped and draped in usual sterile fashion. A time-out was performed. Local anesthetic was infiltrated into the skin and the soft tissue prior to making each incision. Entry to the abdomen was through a left upper quadrant incision accommodating a 12 mm optical trocar. After accessing the peritoneal cavity, carbon dioxide was insufflated to a pressure of 15 mmHg. Under direct visualization, 12 mm bladeless trocars were placed in the supraumbilical midline and in the right upper quadrant. Five mm trocars were placed in the right upper quadrant medially and left upper quadrant laterally and a Chuyita retractor was placed percutaneously in the subxiphoid position and used to elevate the left lobe of the liver. Mobilization of the cardia of the stomach was performed using blunt and LigaSure dissection to mobilize this away from the left cruz of the diaphragm. Then with the patient in the reverse Trendelenburg, the gastric pouch was fashioned. First the perigastric dissection was undertaken on the lesser curvature at the second crossing vein and the lesser sac was entered. Using several firings of the EndoGIA stapler with andrea cartridges, the gastric pouch was created approximating a 15 to 30 mL volume. At this point, the omentum was retracted cephalad and divided down the midline with a LigaSure. The transverse colon was retracted cephalad and ligamentum of Treitz was identified. The jejunum was measured out approximately 50 cm and this loop was approximated to the gastric pouch using 2-0 silks in interrupted fashion. This was brought up in the antecolic fashion. Once this was completed, a gastrojejunal anastomosis was created with the EndoGIA stapler with a 30 mm andrea cartridge. The common gastroenterotomy was run close over a 34 Bahamian gastric lavage tube to ensure that the anastomosis was adequately patent. The closure was performed with 3-0 PDS running. At this point, the O[place] loop was divided to the left of the anastomosis with the EndoGIA stapler with a andrea cartridge. Then the anastomosis itself was tested with methylene blue dye instilled through the orogastric tube and no leak was identified. The methylene blue dye solution and the orogastric tube were removed. The Je limb was then measured out 75 cm and at this point a functional end-to-side jejunojejunostomy was performed using the EndoGIA stapler with a 60 mm linear's cartridge. A common enterotomy was then closed with running 3-0 PDS. After completing the jejunojejunal anastomosis, the jejunal mesenteric defect was closed with interrupted 3-0 silk. Lastly, the two anastomoses were inspected and the Je limb was inspected to assure its proper position. The Chuyita liver retractor and ports were then removed under direct visualization and carbon dioxide was released. Skin incisions were closed with 4-0 Monocryl in subcuticular fashion and Steri-Strips applied. The patient tolerated this procedure well, was extubated and transferred to recovery room in stable condition. [id number]/[facility] #: [id number] ANDRES
[2018-07-26] MEDS: Ondansetron INJ* 2 MG/ML VIAL IV PRN ×2 (02:39→10:50)
[2018-07-26] MEDS: Lactated Ringers 1000 ML Bag* 1,000 ML IV SCH ×3 (03:52→18:09)
[2018-07-26] MEDS: Metoprolol Tartrate IV* 1 MG/ML 5 ML VIAL IV SCH ×4 (03:54→21:35)
[2018-07-26] MEDS: Heparin VIAL(*) 5000 UNITS/ML VIAL (FIVE THOUSAND) SUBCUT SCH ×3 (06:25→21:36)
[2018-07-26] MEDS: Diltiazem CD CAP* 120 MG PO SCH (09:33)
[2018-07-26] MEDS: Famotidine IV* 10 MG/ML 2 ML (20 mg) IV SLOW PU SCH ×2 (09:34→21:31)
[2018-07-26] MEDS: Magnesium Oxide TAB* 400 MG PO SCH (09:35)
[2018-07-26] MEDS: D5W 1/2 NS KCl 20 Meq 1000 ML* 1,000 ML IV SCH (21:40)
[2018-07-27] MEDS: Metoprolol Tartrate IV* 1 MG/ML 5 ML VIAL IV SCH ×2 (03:51→10:18)
[2018-07-27] MEDS: D5W 1/2 NS KCl 20 Meq 1000 ML* 1,000 ML IV SCH (06:13)
[2018-07-27] MEDS: Heparin VIAL(*) 5000 UNITS/ML VIAL (FIVE THOUSAND) SUBCUT SCH (06:52)
--- NOTE | 2018-07-27 09:57 | PN ---
Progress Note - Progress Note Date of Service: 07/27/18 Note: S: POD #2. Had some nausea last night; better this a.m. Pain has been manageable. Voiding well. No other c/o. Intake appears to be adequate, but she had not been recording consistently. Encouraged to do so. O: Vital Signs - 8 hr 07/27/18 07/27/18 03:46 07:42 Temperature 98.2 F 98.5 F Pulse Rate 70 80 Respiratory 20 16 Rate Blood Pressure 134/67 129/65 (mmHg) O2 Sat by Pulse 94 94 Oximetry Intake and Output Last 24 Hours 07/25/18 07/26/18 07/27/18 07/28/18 06:59 06:59 06:59 06:59 Intake Total 2580 3594 0 Output Total 1725 3250 1000 Balance 855 344 -1000 Weight 273 lb 6.4 oz Intake: IV Fluids 2580 3444 3 GM ANCEF 100 D5W 1/2 NS 20 meq KCL 980 LR 2480 2464 Oral 0 150 0 Output: Urine 1725 3250 1000 Other: # Bowel Movements 0 # Voids 1 Gen: sitting up in chair; NAD Heart: reg Lungs: clear Abd: lap sites clean; min drainage; dsgs removed; steris intact. Soft; mild incisional tenderness A: s/p Lap gastric bypass, doing well P: likely home today (will d/w Dr. Ac); instructions reviewed
[2018-07-27] MEDS: Diltiazem CD CAP* 120 MG PO SCH (10:18)
[2018-07-27] MEDS: Magnesium Oxide TAB* 400 MG PO SCH (10:18)
[2018-07-27] MEDS: Famotidine IV* 10 MG/ML 2 ML (20 mg) IV SLOW PU SCH (10:19)
[2018-07-27 10:33] VITALS: BP 127/75
--- NOTE | 2018-07-27 11:14 | DS ---
CC: [facility]; Juana Zamorano [place] * DISCHARGE SUMMARY: DATE OF ADMISSION: 07/25/18 DATE OF DISCHARGE: 07/27/18 ATTENDING SURGEON: Dr. Fabio Ac * (BENNY Alcaraz dictating). HOSPITAL COURSE: Please refer to admission history and physical and operative note for details. Patient was taken to the operating room on 07/25/18, at which time she underwent laparoscopic Je-en-Y gastric bypass with Dr. Ac. Her postoperative course has been as expected with gradual improvement of pain and oral intake of bariatric clear liquids. As of the morning of discharge, she is afebrile with stable vital signs, she is tolerating clear liquids adequately, and her exam was benign (see separate progress note). Instructions were reviewed regarding wound care, diet, and activity. She will continue her usual diltiazem and metoprolol, but hold her lisinopril and pantoprazole (she was told she could use omeprazole p.r.n.). She will also hold her torsemide at least for the immediate future. She has followup set up with [facility] next week. BENNY ALCARAZ [id number]/[facility] #: [id number] MTDD
[2018-07-28] MEDS ORDERED: Scopolamine PATCH Remove* 1 NOTE MISC PATCH OFF ONE (13:00)
== END 2018-07-27 13:25 | disposition home or self-care (01) | DRG 403 ==
LOC: AA 12:28 → SSU 20:27
PROVIDERS: ADMIT Surgery; ATTEND Surgery
PROC: 0D164ZA Bypass Stomach to Jejunum, Percutaneous Endoscopic Approach (ICD-10-PCS; principal; 2018-07-25 14:30)
DX: E66.01 Morbid (severe) obesity due to excess calories (principal); K21.9 Gastro-esophageal reflux disease without esophagitis; I08.1 Rheumatic disorders of both mitral and tricuspid valves; I11.9 Hypertensive heart disease without heart failure; E78.5 Hyperlipidemia, unspecified; K44.9 Diaphragmatic hernia without obstruction or gangrene; G47.33 Obstructive sleep apnea (adult) (pediatric); Z88.5 Allergy status to narcotic agent; Z86.73 Personal history of transient ischemic attack (TIA), and cerebral infarction without residual deficits; Z90.89 Acquired absence of other organs; Z90.49 Acquired absence of other specified parts of digestive tract; Z90.711 Acquired absence of uterus with remaining cervical stump; Z83.49 Family history of other endocrine, nutritional and metabolic diseases; Z68.43 Body mass index [BMI] 50.0-59.9, adult; Z83.3 Family history of diabetes mellitus; Z82.49 Family history of ischemic heart disease and other diseases of the circulatory system; Z72.89 Other problems related to lifestyle; Z87.891 Personal history of nicotine dependence; Z88.8 Allergy status to other drugs, medicaments and biological substances; Z91.018 Allergy to other foods; Z98.51 Tubal ligation status; Z80.0 Family history of malignant neoplasm of digestive organs; R11.0 Nausea
CPT/HCPCS: 43644; A9270-GY; C1776; J0330; J0690; J1100; J1170; J1240; J1644; J2250; J2405; J2704; J2765; J3010; J3490

== ENCOUNTER 2019-09-10 10:54 | Emergency (ER) | payer BC ==
--- OUTSIDE RECORDS SUMMARY | 2019-09-10 11:00 | XMS REPORT | Continuity of Care Document ---
:1975 External Reference #:[id number] Author Name Radha Morgan.PRichard (transmitted by agent of provider Irasema Ramos) Address [address] [place] [address] Care Team Providers Name Role Phone Bruno Quiroz MD - Family Medicine Care Team Information Front Office Java Developer Jarvis Pozo MD - Nephrology Care Team Information Front Office Java Developer [phone] [facility] - Care Team Information Front Office Java Developer Inhalation Therapy Aide Problems Active Problems Provider Date Benign essential hypertension Tuan Zayas M.D. Onset: 06/26/2012 Chest pain Tuan Zayas M.D. Onset: 06/26/2012 Morbid obesity Tuan Zayas M.D. Onset: 06/26/2012 Heart murmur Tuan Zayas M.D. Onset: 06/26/2012 Difficulty breathing Denia Jackson MD Onset: 12/31/2016 Obstructive sleep apnea syndrome Dasha Brooks DNP, RN, [facility]- Onset: 06/2016 Social History Type Date Description Comments Sex Unknown Tobacco Use Start: Unknown End: Former Cigarette Smoker 1 quit 2016 Unknown Pack Daily Smoking Status Reviewed: 08/24/19 Former Cigarette Smoker 1 quit 2016 Pack Daily ETOH Use Occasionally consumes alcohol Tobacco Use Start: Unknown End: Patient is a former smoker Unknown Recreational Drug Use Denies Drug Use Exercise Type/Frequency Exercises regularly Allergies, Adverse Reactions, Alerts Active Allergies Reaction Severity Comments Date Percocet nausea and vomiting 06/26/2012 Vicodin nausea and vomiting 06/26/2012 Pineapple hives 06/26/2012 Cherries hives 06/26/2012 NSAIDs due to PMH - kidney 11/24/2016 disease Oxycodone HCL Oral Concentrate 05/22/2019 100 MG/5ML Vicodin ES Oral Tablet 7.5-750 05/22/2019 MG Medications Active Medications SIG Qnty Indications Ordering Provider Date Opurity 2 by mouth every Unknown Tablets day Magnesium Oxide -MG 2 tablets in the Unknown Supplement morning and 1 250mg Tablets tablet at night by mouth Calcium 500 +D 1 tablet by mouth Unknown daily [id number] Tablets History Medications Magnesium Sulfate 3 grams iv 1 dose for 3gm Tuan Londono 07/03/2019 - hypomagnesemia e 83.42 Kirill Zayas 08/23/2019 2GM/50ML Solution Immunizations Description No Information Available Vital Signs Date Vital Result Comment 08/24/2019 9:15am Height 62 inches 5'2" Weight 202.00 lb without shoes Heart Rate 64 /min BP Systolic Sitting 150 mmHg Lue (Large Cuff) BP Diastolic Sitting 90 mmHg Lue (Large Cuff) BP Systolic Standing 154 mmHg BP Diastolic Standing 90 mmHg BMI (Body Mass Index) 36.9 kg/m2 Ejection Fraction 55-60% Closer to 60% 12/29/2016 Echocardiogram 06/19/2019 10:26am Height 62 inches 5'2" Weight 209.12 lb without shoes Heart Rate 76 /min BP Systolic Sitting 142 mmHg LA< reg BP Diastolic Sitting 94 mmHg LA< reg BP Systolic Standing 142 mmHg LA< reg BP Diastolic Standing 96 mmHg LA< reg BP Systolic Lying Down 142 mmHg la repeat sitting BP Diastolic Lying Down 86 mmHg la repeat sitting BMI (Body Mass Index) 38.2 kg/m2 Ejection Fraction 64% nuclear exercise myoview 05/05/17 Results Test Acquired Date Facility Test Result H/L Range Note Laboratory test 07/25/2019 [facility] Magnesium 1.9 mg/dL Normal 1.9-2.[address] [place] [address] [phone] CBC Auto Diff 07/03/2019 [facility] White Blood 6.2 Normal 3.5 -10.[address] Count 10^3/[place] [address] [phone] Red Blood Count 4.69 10^6/uL Normal 3.70-4.87 Hemoglobin 14.9 g/dL Normal 12.0-16.0 Hematocrit 43 % Normal 35-47 Mean Corpuscular Volume 91 fL Normal 80-97 Mean Corpuscular Hemoglobin 32 pg High 27-31 Mean Corpuscular HGB Conc 35 g/dL Normal 31-36 Red Cell Distribution Width 13 % Normal 10-15 Platelet Count 229 10^3/uL Normal 150-450 Mean Platelet Volume 8.9 fL Normal 7.4-10.4 Abs Neutrophils 4.0 10^3/uL Normal 1.5-7.7 Abs Lymphocytes 1.8 10^3/uL Normal 1.0-4.8 Abs Monocytes 0.3 10^3/uL Normal 0-0.8 Abs Eosinophils 0.1 10^3/uL Normal 0-0.6 Abs Basophils 0.0 10^3/uL Normal 0-0.2 Abs Nucleated RBC 0.0 10^3/uL Granulocyte % 63.9 % Lymphocyte % 29.1 % Monocyte % 4.4 % Eosinophil % 2.1 % Basophil % 0.5 % Nucleated Red Blood Cells % 0.0 Lipid Panel - 07/03/2019 [facility] Creatine 28 U/L Normal 10- [address] Kinase(CK) [place] [address] [phone] Comp Metabolic 07/03/2019 [facility] Sodium 139 Normal 135- [address] mmol/[place] [address] [phone] Potassium 4.1 mmol/L Normal 3.5-5.0 Chloride 104 mmol/L Normal 101-111 Co2 Carbon Dioxide 28 mmol/L Normal 22-32 Anion Gap 7 mmol/L Normal 2-11 Glucose 89 mg/dL Normal 70-100 Blood Urea Nitrogen 13 mg/dL Normal 6-24 Creatinine 0.67 mg/dL Normal 0.51-0.95 BUN/Creatinine Ratio 19.4 Normal 8-20 Calcium 9.2 mg/dL Normal 8.6-10.3 Total Protein 6.0 g/dL Low 6.4-8.9 Albumin 4.0 g/dL Normal 3.2-5.2 Globulin 2.0 g/dL Normal 2-4 Albumin/Globulin Ratio 2.0 Normal 1-3 Total Bilirubin 0.60 mg/dL Normal 0.2-1.0 Alkaline Phosphatase 88 U/L Normal 34-104 Alt 16 U/L Normal 7-52 Ast 16 U/L Normal 13-39 Egfr Non- 95.2 >60 Egfr 115.2 >60 2 Lipid Profile 07/03/2019 [facility] Triglycerides 96 mg/dL 3 (Trig/Chol/HDL) [address] [place] [address] [phone] Cholesterol 150 mg/dL 4 HDL Cholesterol 60.4 mg/dL 5 LDL Cholesterol 70 mg/dL 6 Laboratory test 07/03/2019 [facility] Magnesium 1.7 mg/dL Low 1.9-2.7 7 finding [address] [place] [address] [phone] 1 FASTING Copy Result to: BRUNO QUIROZ ([id number]) 2 Because ethnic data is not always readily available, this report includes an eGFR for both -Americans and non- Americans. The National Kidney Disease Education Program (NKDEP) does not endorse the use of the MDRD equation for patients that are not between the ages of 18 and 70, are , have extremes of body size, muscle mass, or nutritional status, or are non- or non-. According to the National Kidney Foundation, irrespective of diagnosis, the stage of the disease is based on the level of kidney function: Stage Description GFR(mL/min/1.73 m(2)) 1 Kidney damage with normal or decreased GFR 90 2 Kidney damage with mild decrease in GFR 60-89 3 Moderate decrease in GFR 30-59 4 Severe decrease in GFR 15-29 5 Kidney failure <15 (or dialysis) 3 Desirable: <150 Borderline High: 150-199 High: 200-499 Very High: >500 4 Desirable: <200 Borderline High: 200-239 High: >239 5 Low: <40 Desirable: 40-60 High: >60 6 Desirable: <100 Near Optimal: 100-129 Borderline High: 130-159 High: 160-189 Very High: >189 7 FASTING Copy Result to: BRUNO QUIROZ ([id number]) Procedures Date Code Description Status 06/19/2019 98934 EKG Tracing & Interpretation Completed Medical Devices Description No Information Available Encounters Type Date Location Provider Dx Diagnosis Office Visit 08/24/2019 [facility] Akila Nova, E66.8 Other obesity 9:30a Stock Supervisor N.P. I10 Essential (primary) hypertension I49.8 Other specified cardiac arrhythmias E83.42 Hypomagnesemia Office Visit 06/19/2019 10:40a [facility] Tuan Londono E66.8 Other obesity Kirill Zayas R03.0 Elevated blood-pressure reading, w/o diagnosis of htn I49.8 Other specified cardiac arrhythmias E83.42 Hypomagnesemia Assessments Date Code Description Provider 08/24/2019 E66.8 Obesity Akila Nova, N.P. 08/24/2019 I10 Essential (primary) hypertension Akila Nova, N.P. 08/24/2019 I49.8 Palpitations Akila Nova, N.P. 08/24/2019 E83.42 Hypomagnesemia Akila Nova, N.P. 06/19/2019 E66.8 Obesity Tuan Zayas M.D. 06/19/2019 R03.0 Elevated blood-pressure reading without Tuan Zayas M.D. diagnosis of hypertension 06/19/2019 I49.8 Palpitations Tuan Zayas M.D. 06/19/2019 E83.42 Hypomagnesemia Tuan Zayas M.D. Plan of Treatment 08/24/2019 - Akila Nova, N.P.E66.8 [id number] Essential (primary) htmemmbxvuohP74.8 PalpitationsRecommendations:Look for Magnesium taurate 150mg or 712xqE97.42 Hypomagnesemia Functional Status Description No Information Available Mental Status Description No Information Available Referrals Description No Information Available
--- OUTSIDE RECORDS SUMMARY | 2019-09-10 11:00 | XMS REPORT | Continuity of Care Document ---
:1975 External Reference #:[id number] Author Name Akila Nova N.P. Address [address] [place] [id number] Care Team Providers Name Role Phone Bruno Quiroz MD - Family Medicine Care Team Information Clean Room Assembler Jarvis Pozo MD - Nephrology Care Team Information Clean Room Assembler [facility] - Care Team Information Clean Room Assembler Backend Developer Problems Active Problems Provider Date Benign essential hypertension uTan Zaays M.D. Onset: 06/26/2012 Chest pain Tuan Zayas M.D. Onset: 06/26/2012 Morbid obesity Tuan Zayas M.D. Onset: 06/26/2012 Heart murmur Tuan Zayas M.D. Onset: 06/26/2012 Difficulty breathing Denia Jackson MD Onset: 12/31/2016 Obstructive sleep apnea syndrome Dasha Brooks DNP, RN, DELIVERY AGENT-BC Onset: 06/2016 Social History Type Date Description [...] +D 1 tablet by mouth Unknown daily [id number] Tablets History Medications Magnesium Sulfate 3 grams [...] Result H/L Range Note Laboratory test 07/25/2019 [facility] Magnesium 1.9 mg/dL Normal 1.9-2.[address] [place] [address] [phone] CBC Auto Diff 07/03/2019 [facility] White Blood 6.2 Normal 3.5 -10.[address] Count 10^3/[place] [address] [phone] Red Blood Count 4.69 10^6/uL Normal 3.70-4.87 [...] Cells % 0.0 Lipid Panel - 07/03/2019 [facility] Creatine 28 U/L Normal 10- 223 [address] Kinase(CK) [place] [address] [phone] Comp Metabolic 07/03/2019 [facility] Sodium 139 Normal 135- [address] mmol/[place] [address] [phone] Potassium 4.1 mmol/L Normal 3.5-5.0 Chloride 104 [...] Egfr 115.2 >60 2 Lipid Profile 07/03/2019 [facility] Triglycerides 96 mg/dL 3 (Trig/Chol/HDL) [address] [place] [address] [phone] Cholesterol 150 mg/dL 4 HDL Cholesterol 60.4 mg/dL 5 LDL Cholesterol 70 mg/dL 6 Laboratory test 07/03/2019 [facility] Magnesium 1.7 mg/dL Low 1.9-2.7 [address] [place] [address] [phone] 1 FASTING Copy Result to: BRUNO QUIROZ ([id number]) 2 Because ethnic data is not always [...] 7 FASTING Copy Result to: BRUNO QUIROZ ([id number]) Procedures Date Code Description Status 06/19/2019 31602 EKG Tracing & Interpretation Completed Medical Devices Description No Information Available Encounters Type Date Location Provider Dx Diagnosis Office Visit 08/24/2019 [facility] Akila Nova, E66.8 Other obesity 9:30a Coroner Technician N.P. R03.0 Elevated blood-pressure reading, w/o diagnosis of htn I49.8 Other specified cardiac arrhythmias E83.42 Hypomagnesemia Office Visit 06/19/2019 10:40a [facility] Tuan Londono E66.8 Other obesity Kirill Zayas R03.0 Elevated blood-pressure reading, w/o diagnosis of htn I49.8 Other specified cardiac arrhythmias E83.42 Hypomagnesemia Assessments Date Code Description Provider 08/24/2019 E66.8 Obesity Akila Nova, N.P. 08/24/2019 R03.0 Elevated blood-pressure reading without Akila Tate. Avtar, N.P. diagnosis of hypertension 08/24/2019 I49.8 Palpitations Akila Nova, N.P. 08/24/2019 E83.42 Hypomagnesemia Akila Nova, N.P. 06/19/2019 E66.8 Obesity Tuan Zayas M.D. 06/19/2019 R03.0 Elevated blood-pressure reading without Tuan Zayas M.D. diagnosis of hypertension 06/19/2019 I49.8 Palpitations Tuan Zayas M.D. 06/19/2019 E83.42 Hypomagnesemia Tuan Zayas M.D. Plan of Treatment 08/24/2019 - Akila Nova, N.P.E66.8 FhrwkteP99.0 Elevated blood-pressure reading without diagnosis of hypertensionFollow up:OV 1yr JFMRecommendations: Take BP at work for 2-3 weeks and mail or drop off BPs.I49.8 PalpitationsRecommendations:Look for Magnesium taurate 150mg or 768nuH25.42 Hypomagnesemia Functional Status Description No Information Available Mental Status Description No Information Available Referrals Description No Information Available
--- NOTE | 2019-09-10 11:24 | UC ---
Respiratory Complaint HPI - History of Current Complaint Stated Complaint: FEVER COUGH CONGESTION EAR PAIN Time Seen by Provider: 09/10/19 11:23 Hx Last Menstrual Period: 07/28/12 - Allergies/Home Medications Allergies/Adverse Reactions: Allergies Allergy/AdvReac Type Severity Reaction Status Date / Time hydrocodone Allergy Intermediate vomitting Verified 07/11/19 11:58 NSAIDS (Non-Steroidal Allergy Intermediate kidney Verified 07/11/19 11:58 Anti-Inflamma damage oxycodone Allergy Intermediate vomitting Verified 07/11/19 11:58 Home Medications: Home Medications Magnesium Oxide TAB* [MagOx 400 TAB*] 400 mg PO QAM 05/03/17 [History Confirmed 07/11/19] Multivitamin [Super Multivitamin] 1 each PO QAM 07/18/18 [History Confirmed ] Omeprazole 20 mg PO BID 05/28/19 [History Confirmed 07/11/19] PMH/Surg Hx/FS Hx/Imm Hx Other History Of: Negative For: Anticoagulant Therapy - Surgical History Surgical History: Yes Surgery Procedure, Year, and Place: lumbar L4/L5 discectomy x2, uterine ablation , tubal ligation, appendix, tonsillectomy, jaw fx repair, gallbladder removal, partial HYSTERECTOMY - Family History Known Family History: Positive: Cardiac Disease - CAD, CABG, Diabetes, Blood Disorder - DVT - Social History Alcohol Use: None Substance Use Type: None Smoking Status (MU): Former Smoker Type: Cigarettes Amount Used/How Often: 07/2016 Length of Time of Smoking/Using Tobacco: 25 Have You Smoked in the Last Year: Yes When Did the Patient Quit Smoking/Using Tobacco: 08/03/16 Household Exposure Type: Cigarettes - Immunization History Most Recent Influenza Vaccination: 2016 Most Recent Tetanus Shot: within 10 years Most Recent Pneumonia Vaccination: none Discharge ED - Discharge Plan Referrals: Bruno Cabrera MD [Primary Care Provider] -
--- NOTE | 2019-09-10 11:31 | UC ---
[facility] HPI HPI Summary: 43-year-old female presenting with 2 days of runny nose and sinus pain and pressure, and possible double ear infection that began 2 days ago. Patient also states that she woke up with fever today at 2 AM that was 103. States she took Tylenol with last dose at 2 AM which she states broke her fever. Also notes productive cough of clear phlegm. She notes postnasal drip as well. Denies shortness of breath, difficulty breathing, and chest pain. Denies body aches. Denies recent travel. 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 Patient believes she has an upper respiratory infection. [facility] Endocrine/Hematology History: Reports: Hx Thyroid Disease - having surgery for cancer Denies: Hx Anticoagulant Therapy, Hx Diabetes, Hx Anemia Cardiovascular History: Reports: Hx Angina, Hx Hypertension, Other Cardiovascular Problems/Disorders - LISINOPRIL FOR KIDNEYS , METOPROLOL FOR TACHYCARDIA Denies: Hx Coronary Artery Disease, Hx Hypercholesterolemia, Hx Myocardial Infarction, Hx Pacemaker/ICD, Hx Peripheral Vascular Disease, Hx Valvular Heart Disease Respiratory History: Reports: Hx Sleep Apnea - very slight Denies: Hx Asthma, Hx Chronic Obstructive Pulmonary Disease (COPD) GI History: Reports: Hx Gastroesophageal Reflux Disease Denies: Hx Jaundice History: Reports: Hx Renal Disease - sclerosis of kidney, Other Problems/ Disorders - Kidney disease - sclerosis of kidneys, glomerular nephritis Musculoskeletal History: Reports: Hx Back Problems - Multiple surgeries Denies: Hx Arthritis, Hx Osteoporosis Sensory History: Denies: Hx Cataracts, Hx Contacts or Glasses, Hx Glaucoma, Hx Hearing Aid Opthamlomology History: Denies: Hx Cataracts, Hx Contacts or Glasses, Hx Glaucoma Neurological History: Denies: Hx Headaches, Hx Seizures, Hx Transient Ischemic Attacks (TIA) Psychiatric History: Denies: Hx Panic Disorder - Cancer History Hx Chemotherapy: No - Surgical History Surgery Procedure, Year, and Place: lumbar L4/L5 discectomy x2, uterine ablation , tubal ligation, appendix, tonsillectomy, jaw fx repair, gallbladder removal, partial HYSTERECTOMY, gastric bypass Hx Anesthesia Reactions: No - Immunization History Date of Tetanus Vaccine: UNK Date of Influenza Vaccine: 03/04/16 - Family History Known Family History: Positive: Cardiac Disease - CAD, CABG, Diabetes, Blood Disorder - DVT - Social History Alcohol Use: None Hx Substance Use: No Substance Use Type: Reports: None Hx Tobacco Use: Yes Smoking Status (MU): Former Smoker Type: Cigarettes Amount Used/How Often: 07/2016 Length of Time of Smoking/Using Tobacco: 25 Have You Smoked in the Last Year: Yes [facility] Telehealth ROS All Other Systems Reviewed And Are Negative: Yes Positive: Fever Positive: Sore Throat, Ear Ache - bilateral, Nasal Discharge Cardiovascular: Negative Positive: Cough - productive of clear sputum Gastrointestinal: Negative Musculoskeletal: Negative Neurological/Mental Status: Negative Telehealth Course/Dx Assessment/Plan: To decrease risk of transmission of covid 19, I interviewed the patient using telemedicine. this does limit the physical exam. Patient verbally consented to be tested for strep, flu, and covid19 from her car in the parking lot. Flu and strep tests were negative. I discussed results with the patient and informed that she would receive the covid19 results from the health department within the next 3-5 days. Patient prefers to be treated for possible ear and sinus infection so treated with augmentin and instructed to continue with symptomatic treatment. I discussed self quarantining until results had been received from the health Department. Instructed to go to the ED if she experiences worsening shortness of breath/difficulty breathing. Patient voiced understanding and agreed with treatment plan. All questions answered to the best of my abilities. Provider Diagnoses: URI (upper respiratory infection), Acute pain of both ears [facility] Telehealth Disposition Provider Recommendation for Treatment: Urgent Care Telehealth Visit: Patient Consented Verbally to Telehealth Visit Telehealth Patient Statement: The patient should understand that they are communicating with their provider via a secure communication platform and that all the same privacy and confidentiality rules apply. They will also be responsible for copayments or coinsurances that apply to any Telehealth visit. Patient Identifiers: 2 Patient Identifiers Verified for Telehealth Visit Telehealth Visit Start Time: 11:30 Telehealth Visit End Time: 12:30 Telehealth Provider Attestation: The above services were appropriate to provide in a Telehealth setting.
[2019-09-10 12:06] LABS: Influenza A Molecular Negative (Negative); Influenza B Molecular Negative (Negative)
== END 2019-09-10 12:31 | disposition home or self-care (01) ==
LOC: UCEAST 10:54
DX: J06.9 Acute upper respiratory infection, unspecified (principal); H92.03 Otalgia, bilateral; R50.9 Fever, unspecified; Z20.828 Contact with and (suspected) exposure to other viral communicable diseases; Z87.891 Personal history of nicotine dependence
CPT/HCPCS: 87651; 99211; G0463; U0002

== ENCOUNTER 2020-07-04 15:54 | Inpatient (IN) ==
[2020-07-04] MEDS ORDERED: NS 0.9% 1000 ml BAG 1,000 ML IV ONE (15:56)
[2020-07-04] MEDS ORDERED: Iodixanol (CONTRAST) 320 MG/ML 100 ML SDV IV ONE (16:07)
[2020-07-04 16:22] LABS: ABS Eosinophils 0.1 10^3/ul (0-0.6); ABS Lymphocytes 1.3 10^3/ul (1.0-4.8); ABS Monocytes 0.3 10^3/ul (0-0.8); ABS Neutrophils 6.6 10^3/ul (1.5-7.7); Eosinophil % 0.8 %; Hematocrit 42 % (35-47); Hemoglobin 14.3 g/dL (12.0-16.0); Lymphocyte % 15.7 %; Mean Corpuscular HGB Conc 34 g/dL (31-36); Mean Corpuscular Hemoglobin 32 pg (27-31); Mean Corpuscular Volume 94 fL (80-97); Platelet Count 235 10^3/uL (150-450); Red Blood Count 4.52 10^6 /uL (3.70-4.87); Red Cell Distribution Width 13 % (10-15); White Blood Count 8.4 10^3/uL (3.5-10.8)
[2020-07-04] MEDS ORDERED: Alteplase (100 mg Vial) 100 mg VIAL IV ONE (16:38)
[2020-07-04] MEDS ORDERED: Alteplase (100 mg Vial) 100 MG in Premix IV 100 ML IV ONE (16:44)
[2020-07-04 16:48] LABS: Activated Partial Thrombo Time 28.1 seconds (26.0-38.0); INR 1.02 (0.82-1.09)
[2020-07-04 16:52] LABS: Albumin 4.4 g/dL (3.2-5.2); Albumin/Globulin Ratio 2.1 (1-3); BUN/Creatinine Ratio 14.7 (8-20); Calcium 9.5 mg/dL (8.6-10.3); EGFR African American 112.7 (>60); EGFR Non-African American 93.2 (>60); Globulin 2.1 g/dL (2-4); HDL Cholesterol 88.3 mg/dL; Potassium 3.8 mmol/L (3.5-5.0); Total Bilirubin 0.7 mg/dL (0.2-1.0); Total Protein 6.5 g/dL (6.4-8.9)
[2020-07-04 17:04] LABS: Urine Appearance Clear; Urine Bilirubin Negative (Negative); Urine Blood Negative (Negative); Urine Color Colorless; Urine Glucose Negative (Negative); Urine Ketones Trace (Negative); Urine Nitrite Negative (Negative); Urine Protein Negative (Negative); Urine Specific Gravity 1.003 (1.010-1.030); Urine Urobilinogen Negative (Negative)
[2020-07-04 23:28] LABS: Magnesium 1.8 mg/dL (1.9-2.7)
[2020-07-05] MEDS ORDERED: Magnesium Sulfate IV 1GM/100ML 1 GM/100 ML BAG IV ONE (00:46)
[2020-07-05 04:27] LABS: Magnesium 1.9 mg/dL (1.9-2.7)
[2020-07-05 05:33] LABS: ABS Eosinophils 0.1 10^3/ul (0-0.6); ABS Lymphocytes 1.8 10^3/ul (1.0-4.8); ABS Monocytes 0.3 10^3/ul (0-0.8); Eosinophil % 2.8 %; Hematocrit 39 % (35-47); Lymphocyte % 34.8 %; Mean Corpuscular HGB Conc 34 g/dL (31-36); Mean Corpuscular Hemoglobin 32 pg (27-31); Mean Corpuscular Volume 95 fL (80-97); Mean Platelet Volume 8.5 fL (7.4-10.4); Platelet Count 205 10^3/uL (150-450); Red Blood Count 4.07 10^6 /uL (3.70-4.87); Red Cell Distribution Width 13 % (10-15); White Blood Count 5.3 10^3/uL (3.5-10.8)
[2020-07-05 06:05] LABS: Calcium 8.2 mg/dL (8.6-10.3); Potassium 3.7 mmol/L (3.5-5.0)
[2020-07-05 06:11] LABS: BUN/Creatinine Ratio 15.4 (8-20); EGFR African American 153.6 (>60); EGFR Non-African American 126.9 (>60)
[2020-07-06] MEDS ORDERED: Perflutren Lipid Microsphere 3 ML VIAL ONE (07:35)
[2020-07-06] MEDS: Aspirin EC 81 mg TAB.EC (enteric coated) PO SCH (09:11)
[2020-07-07] MEDS: Aspirin EC 81 mg TAB.EC (enteric coated) PO SCH (08:59)
[2020-07-07 10:08] LABS: Folate 8.72 ng/mL (>3.99)
[2020-07-07 16:38] VITALS: BP 143/76
[2020-07-08 14:52] LABS: DRVVT Screen Ratio 0.93 ratio (<1.20); LAC APTT 30 sec (25 - 37); LAC INR 1.1 (0.9-1.1); Prothrombin Time(LAC) 11.7 sec (9.4 - 12.5)
[2020-07-08 22:23] LABS: Complement C3 103 mg/dL (75 - 175)
[2020-07-09 14:04] LABS: Phospholipid Ab IgG < 9.4 GPL; Phospholipid Ab IgM, S < 9.4 MPL
[2020-07-14 14:06] LABS: FACV Specimen Whole Blood
== END 2020-07-07 16:20 | disposition home or self-care (01) | DRG 45 ==
LOC: ED 15:54 → ICU 22:30 → MEDTELE 07-05 20:50
PROVIDERS: ADMIT Internal Medicine Interventional Cardiology; ATTEND Internal Medicine

== ENCOUNTER 2020-10-09 12:02 | Observation (INO) ==
[2020-10-09] MEDS ORDERED: NS 0.9% 1000 ml BAG 1,000 ML IV ONE (12:15)
[2020-10-09 12:41] LABS: ABS Eosinophils 0.2 10^3/ul (0-0.6); ABS Lymphocytes 1.2 10^3/ul (1.0-4.8); ABS Monocytes 0.3 10^3/ul (0-0.8); ABS Neutrophils 4.9 10^3/ul (1.5-7.7); Eosinophil % 2.4 %; Hematocrit 46 % (35-47); Hemoglobin 15.1 g/dL (12.0-16.0); Lymphocyte % 18.7 %; Mean Corpuscular HGB Conc 33 g/dL (31-36); Mean Corpuscular Hemoglobin 31 pg (27-31); Mean Corpuscular Volume 94 fL (80-97); Mean Platelet Volume 8.3 fL (7.4-10.4); Platelet Count 261 10^3/uL (150-450); Red Blood Count 4.83 10^6 /uL (3.70-4.87); Red Cell Distribution Width 13 % (10-15); White Blood Count 6.7 10^3/uL (3.5-10.8)
[2020-10-09] MEDS ORDERED: Metoclopramide 5 MG/ML VIAL (10 mg) IV SLOW PU ONE (12:51)
[2020-10-09 13:02] LABS: Albumin 4.5 g/dL (3.2-5.2); Albumin/Globulin Ratio 1.7 (1-3); Calcium 9.6 mg/dL (8.6-10.3); EGFR African American 96.2 (>60); EGFR Non-African American 79.5 (>60); Globulin 2.6 g/dL (2-4); HDL Cholesterol 83.7 mg/dL; Potassium 4.1 mmol/L (3.5-5.0); Total Bilirubin 0.7 mg/dL (0.2-1.0); Total Protein 7.1 g/dL (6.4-8.9)
[2020-10-09 13:36] LABS: Activated Partial Thrombo Time 30.6 seconds (26.0-38.0); INR 0.96 (0.82-1.09)
[2020-10-09 13:39] LABS: Urine Appearance Clear; Urine Bilirubin Negative (Negative); Urine Blood Negative (Negative); Urine Color Straw; Urine Glucose Negative (Negative); Urine Ketones Negative (Negative); Urine Nitrite Negative (Negative); Urine Protein Negative (Negative); Urine Specific Gravity 1.002 (1.002-1.030); Urine Urobilinogen Negative (Negative)
[2020-10-09] MEDS ORDERED: Morphine 2 MG/ML SYRINGE IV PRN (14:58)
[2020-10-09] MEDS ORDERED: Dextran 70/Hypromellose Tears Eye Drops 15 ml BTL (for Artificials Tears) LEFT EYE PRN (15:01)
[2020-10-09] MEDS ORDERED: Gadoteridol (CONTRAST) 279.3 MG/ML 10 ML IV ONE (16:16)
[2020-10-09] MEDS ORDERED: Enoxaparin 40 MG/0.4 ML SYR SUBCUT SCH (21:00)
[2020-10-10] MEDS ORDERED: Aspirin EC 81 mg TAB.EC (enteric coated) PO SCH (09:00)
[2020-10-10 10:47] VITALS: BP 144/74
== END 2020-10-10 13:25 | disposition home or self-care (01) ==
LOC: ED 12:02 → MEDTELE 12:02 → MED 10-10 02:25
PROVIDERS: ADMIT Hospitalist; ATTEND Hospitalist

== ENCOUNTER 2023-01-03 16:58 | Inpatient (IN) ==
[2023-01-03] MEDS ORDERED: Lactated Ringers 1000 ml BAG 1,000 ML IV ONE (17:17)
[2023-01-03] MEDS ORDERED: Morphine 4 MG/ML VIAL (1 ml) IV ONE (17:18)
[2023-01-03] MEDS ORDERED: Ondansetron 4 mg VIAL 2 MG/ML 2 ml VIAL IV ONE ×2 (17:18→20:32)
[2023-01-03] MEDS ORDERED: fentaNYL 100 mcg/2 ml 50 MCG/ML VIAL IV SLOW PU ONE (17:25)
[2023-01-03 17:34] LABS: ABS Basophils 0.1 10^3/uL (0.0-0.1); ABS Eosinophils 0.2 10^3/uL (0.0-0.5); ABS Lymphocytes 2.7 10^3/uL (1.0-4.8); ABS Monocytes 0.7 10^3/uL (0.0-0.9); ABS Neutrophils 7.1 10^3/uL (1.5-7.6); ABS Nucleated RBC 0.01 10^3/ul; Eosinophil % 1.5 %; Hematocrit 37.2 % (35-45); Lymphocyte % 25.4 %; Mean Corpuscular Hemoglobin 22.4 pg (27-33); Mean Corpuscular Hgb Conc 32.1 g/dL (31-36); Mean Corpuscular Volume 69.7 fL (80-97); Mean Platelet Volume 9.2 fL (7.5-11.2); Nucleated Red Blood Cells % 0.1 /100 WBC (0.0-0.4); Platelet Count 378 10^3/uL (150-450); Red Blood Count 5.34 10^6/uL (3.63-4.92); Red Cell Distribution Width 19.8 % (12-17); White Blood Count 10.8 10^3/uL (3.8-11.8)
[2023-01-03 17:38] LABS: INR 1.05 (0.88-1.18)
[2023-01-03] MEDS ORDERED: HYDROmorphone 0.5 MG/0.5 ML SYRINGE IV ONE (17:54)
[2023-01-03 18:01] LABS: ALT 268 U/L (7-52); AST 448 U/L (13-39); Albumin 4.4 g/dL (3.2-5.2); Albumin/Globulin Ratio 1.8 (1-3); Alkaline Phosphatase 160 U/L (35-149); Anion Gap 15 mmol/L (2-16); Blood Urea Nitrogen 9 mg/dL (6-24); C Reactive Protein < 1.00 mg/L (<8.01); CO2 Carbon Dioxide 19 mmol/L (22-32); Calcium 9.7 mg/dL (8.6-10.3); Chloride 105 mmol/L (101-111); Creatinine, Serum 0.73 mg/dL (0.51-0.95); Globulin 2.5 g/dL (2-4); Glucose 104 mg/dL (70-100); Lipase 68 U/L (11.0-82.0); Magnesium 1.8 mg/dL (1.9-2.7); Potassium 3.7 mmol/L (3.5-5.0); Sodium 139 mmol/L (135-145); Total Protein 6.9 g/dL (6.4-8.9); eGFR CKD-EPI 100.8 (>60)
[2023-01-03] MEDS ORDERED: HYDROmorphone 0.5 MG/0.5 ML SYRINGE IV SLOW PU ONE (18:13)
[2023-01-03] MEDS ORDERED: Famotidine IV 10 MG/ML 2 ml VIAL (20 mg) IV SLOW PU ONE (18:19)
[2023-01-03] MEDS ORDERED: Al Hydrox/Mg Hydrox/Simet LIQ 30 ML UDC PO ONE (18:19)
[2023-01-03] MEDS ORDERED: Acetaminophen IV 1 GM/100ML 1,000 MG/100 ML BAG IV ONE (18:24)
[2023-01-03] MEDS ORDERED: Ketamine HCL 50 mg/ml 10 ml VIAL (500 MG) IV ONE ×2 (18:30→19:20)
[2023-01-03] MEDS ORDERED: Iohexol 350 (CONTRAST) 500 ML MDV IV ONE (18:43)
[2023-01-03 19:05] LABS: Urine Appearance Clear; Urine Bilirubin Negative (Negative); Urine Blood Negative (Negative); Urine Color Straw; Urine Glucose Negative (Negative); Urine Ketones Negative (Negative); Urine Nitrite Negative (Negative); Urine Protein Negative (Negative); Urine Specific Gravity 1.004 (1.002-1.030); Urine Urobilinogen Negative (Negative)
[2023-01-03] MEDS ORDERED: Piperacillin/Tazobac ADVAN 3.375 GM in NS 0.9% 100 ml BAG 100 ML IV ONE (20:00)
[2023-01-03] MEDS ORDERED: fentaNYL 100 mcg/2 ml 50 MCG/ML VIAL ONE ×2 (21:33→23:42)
[2023-01-03] MEDS ORDERED: Midazolam 5 mg/5 ml VIAL 1 mg/ml 5 ml VIAL (5 mg) ONE (21:34)
[2023-01-03 22:02] LABS: Venous Bicarbonate HCO3 26.1 mmol/L (24-28)
[2023-01-03] MEDS ORDERED: Lidocaine 2% PF 5 ML VIAL ONE (22:11)
[2023-01-03] MEDS ORDERED: Rocuronium 50 mg VIAL 10 mg/ml 5 ml VIAL (50 mg) ONE ×2 (22:14→23:41)
[2023-01-03] MEDS ORDERED: Bupivacaine 0.5% SDV PF 30ML VIAL ONE (22:21)
[2023-01-03] MEDS ORDERED: Ondansetron 4 mg VIAL 2 MG/ML 2 ml VIAL ONE (23:08)
[2023-01-03] MEDS ORDERED: Dexamethasone IV 4 MG/ML VIAL 1 ml VIAL ONE (23:08)
[2023-01-03] MEDS ORDERED: Naloxone 0.4 mg VIAL 0.4 mg/ml 1 ml VIAL IV PRN (23:48)
[2023-01-03] MEDS ORDERED: Ondansetron 4 mg VIAL 2 MG/ML 2 ml VIAL IV PRN (23:48)
[2023-01-04] MEDS ORDERED: Ondansetron 4 mg VIAL 2 MG/ML 2 ml VIAL IV PRN (00:52)
[2023-01-04] MEDS ORDERED: Naloxone 0.4 mg VIAL 0.4 mg/ml 1 ml VIAL IV PUSH PRN (00:58)
[2023-01-04] MEDS ORDERED: Calcium Carb (TUMS) 500 mg CHEW TAB PO PRN (00:59)
[2023-01-04] MEDS ORDERED: Morphine PCA ADULT 5 MG/ML 30 ML PCA SCH (01:00)
[2023-01-04] MEDS ORDERED: HYDROmorphone 1 MG/1 ML SYRINGE ONE (01:03)
[2023-01-04] MEDS: HYDROmorphone 1 MG/1 ML SYRINGE IV PRN ×3 (01:03→01:23)
[2023-01-04] MEDS ORDERED: Ondansetron 4 mg VIAL 2 MG/ML 2 ml VIAL ONE (01:26)
[2023-01-04] MEDS: Lactated Ringers 1000 ml BAG 1,000 ML IV SCH ×3 (02:50→22:16)
[2023-01-04] MEDS ORDERED: Thiamine 100 MG/ML 2 ml VIAL (200 mg) IM ONE (08:44)
[2023-01-04] MEDS: Multivitamins/Minerals TAB PO SCH (09:31)
[2023-01-04 09:56] LABS: Albumin 3.8 g/dL (3.2-5.2); Albumin/Globulin Ratio 1.8 (1-3); Calcium 8.6 mg/dL (8.6-10.3); Creatinine, Serum 0.67 mg/dL (0.51-0.95); Globulin 2.1 g/dL (2-4); Total Bilirubin 0.5 mg/dL (0.2-1.0); Total Protein 5.9 g/dL (6.4-8.9); eGFR CKD-EPI 107.1 (>60)
[2023-01-04] MEDS: Acetaminophen IV 1 GM/100ML 1,000 MG/100 ML BAG IV SCH ×3 (12:17→23:48)
[2023-01-04 13:06] LABS: Hemoglobin 11.2 g/dL (11.5-14.3); Mean Corpuscular Hemoglobin 22.1 pg (27-33); Mean Corpuscular Hgb Conc 31.1 g/dL (31-36); Mean Platelet Volume 9.5 fL (7.5-11.2); Platelet Count 296 10^3/uL (150-450); Red Blood Count 5.08 10^6/uL (3.63-4.92); White Blood Count 23.2 10^3/uL (3.8-11.8)
[2023-01-04 16:35] LABS: ABS Lymphocytes 0.9 10^3/uL (1.0-4.8); ABS Monocytes 1.2 10^3/uL (0.0-0.9); ABS Neutrophils 21.1 10^3/uL (1.5-7.6); Eosinophil % 0.1 %
[2023-01-05] MEDS: Acetaminophen IV 1 GM/100ML 1,000 MG/100 ML BAG IV SCH ×2 (05:18→12:25)
[2023-01-05] MEDS: Lactated Ringers 1000 ml BAG 1,000 ML IV SCH (08:38)
[2023-01-05] MEDS: Multivitamins/Minerals TAB PO SCH (08:39)
[2023-01-05] MEDS ORDERED: Ondansetron ODT 4 mg TAB 4 MG TAB SL PRN (10:54)
[2023-01-05] MEDS ORDERED: Acetaminoph/Cod 120/12 mg LIQ 5 ML UDC PO PRN (10:55)
[2023-01-05] MEDS ORDERED: Acetaminop/Codeine 300mg/30mg TAB PO PRN (12:02)
[2023-01-05 14:15] VITALS: BP 129/65
== END 2023-01-05 15:25 | disposition home or self-care (01) | DRG 229 ==
LOC: ED 16:58 → SSU 21:39 → OR 21:40 → SSU 21:40 → OBSVTOIN 01-04 02:13
PROVIDERS: ADMIT Surgery; ATTEND Surgery

== ENCOUNTER 2024-07-02 09:30 | Inpatient (IN) ==
[2024-07-02] MEDS: Iodixanol 320 (CONTRAST) 100 ML SDV IV ONE (09:52)
[2024-07-02] MEDS ORDERED: TENECTEPLASE 50 MG VIAL KIT 5 MG/ML (reconstituted) IV ONE (09:56)
[2024-07-02 10:12] LABS: ABS Basophils 0.1 10^3/uL (0.0-0.1); ABS Eosinophils 0.2 10^3/uL (0.0-0.5); ABS Lymphocytes 2.1 10^3/uL (1.0-4.8); ABS Monocytes 0.4 10^3/uL (0.0-0.9); ABS Neutrophils 4.7 10^3/uL (1.5-7.6); ABS Nucleated RBC 0.03 10^3/ul; Eosinophil % 2.6 %; Hematocrit 54.1 % (35-45); Hemoglobin 18.4 g/dL (11.5-14.3); Lymphocyte % 28.3 %; Mean Corpuscular Hemoglobin 31.5 pg (27-33); Mean Corpuscular Volume 92.7 fL (80-97); Mean Platelet Volume 8.5 fL (7.5-11.2); Nucleated Red Blood Cells % 0.4 %/100WBC (0.0-0.8); Platelet Count 275 10^3/uL (150-450); Red Blood Count 5.83 10^6/uL (3.63-4.92); Red Cell Distribution Width 13.7 % (12-17); White Blood Count 7.5 10^3/uL (3.8-11.8)
[2024-07-02] MEDS: TENECTEPLASE 50 MG VIAL KIT 5 MG/ML (reconstituted) IV ONE (10:13)
[2024-07-02] MEDS ORDERED: Sulfur Hexaflouride MICROSPHR 25 MG VIAL IV PRN (10:16)
[2024-07-02] MEDS: Thiamine 100 MG/ML 2 ml VIAL (200 mg) IV ONE (10:24)
[2024-07-02 10:27] LABS: Activated Partial Thrombo Time 32.3 seconds (26.0-38.0); INR 0.96 (0.85-1.14)
[2024-07-02 10:45] LABS: Albumin 4.4 g/dL (3.5-5.7); Calcium 9.4 mg/dL (8.6-10.3); Creatinine, Serum 0.63 mg/dL (0.51-0.95); Direct Bilirubin 0.1 mg/dL (0.03-0.18); Globulin 2.2 g/dL (2-4); Indirect Bilirubin 0.3 mg/dL (0.3-1.0); Potassium 4.4 mmol/L (3.5-5.0); Total Bilirubin 0.4 mg/dL (0.2-1.0); Total Protein 6.6 g/dL (6.4-8.9)
[2024-07-02 12:09] LABS: Urine Appearance Clear; Urine Bilirubin Negative (Negative); Urine Blood Negative (Negative); Urine Color Colorless; Urine Glucose Negative (Negative); Urine Ketones Negative (Negative); Urine Nitrite Negative (Negative); Urine Protein 1+ (>=30 mg/dL) (Negative); Urine Specific Gravity 1.018 (1.002-1.030); Urine Urobilinogen Negative (Negative)
[2024-07-02 12:19] LABS: Urine Bacteria Absent /HPF (Absent); Urine Red Blood Cell Trace(0-2/hpf) /HPF (0-Trace); Urine Squamous Epithelial Cell Present /HPF (Absent); Urine White Blood Cell Absent /HPF (0-Trace)
[2024-07-03 04:55] LABS: ABS Basophils 0.1 10^3/uL (0.0-0.1); ABS Eosinophils 0.2 10^3/uL (0.0-0.5); ABS Lymphocytes 2.2 10^3/uL (1.0-4.8); ABS Monocytes 0.7 10^3/uL (0.0-0.9); ABS Neutrophils 4.6 10^3/uL (1.5-7.6); ABS Nucleated RBC 0.01 10^3/ul; Eosinophil % 3.2 %; Hematocrit 49.2 % (35-45); Hemoglobin 16.9 g/dL (11.5-14.3); Lymphocyte % 28.1 %; Mean Corpuscular Hgb Conc 34.3 g/dL (31-36); Mean Corpuscular Volume 93.1 fL (80-97); Mean Platelet Volume 8.7 fL (7.5-11.2); Nucleated Red Blood Cells % 0.1 %/100WBC (0.0-0.8); Platelet Count 230 10^3/uL (150-450); Red Blood Count 5.29 10^6/uL (3.63-4.92); Red Cell Distribution Width 13.7 % (12-17); White Blood Count 7.7 10^3/uL (3.8-11.8)
[2024-07-03 05:32] LABS: Calcium 7.8 mg/dL (8.6-10.3); Creatinine, Serum 0.52 mg/dL (0.51-0.95); Magnesium 1.6 mg/dL (1.9-2.7); Potassium 3.7 mmol/L (3.5-5.0); eGFR CKD-EPI 113.1 (>60)
[2024-07-03] MEDS: Magnesium Sulfate 2 gm BAG 2 GM/50 ML BAG IVPB ONE ×2 (07:35→12:16)
[2024-07-03] MEDS: Multivitamins/Minerals TAB PO SCH (07:35)
[2024-07-03] MEDS ORDERED: Magnesium Sulfate IV 1GM/100ML 1 GM/100 ML BAG IV ONE (07:47)
[2024-07-03] MEDS: Magnesium Sulfate IV 1GM/100ML 1 GM/100 ML BAG IV ONE (09:30)
[2024-07-03] MEDS: DULoxetine DR 60 mg CAP PO SCH (10:22)
[2024-07-03 15:51] VITALS: BP 159/97
== END 2024-07-03 17:02 | disposition home or self-care (01) | DRG 45 ==
LOC: ED 09:30 → EDHOLD 11:17 → ICU 13:20
PROVIDERS: ADMIT Student in an Organized Health Care Education/Training Program; ATTEND Student in an Organized Health Care Education/Training Program